=== PATIENT | female | born 1960 | race Two or more races ===

== ENCOUNTER 2022-03-03 08:35 | Outpatient (REF) | payer OTHER, SELFPAY ==
--- NOTE | ~2022-03-03 | MM_ITS ---
EXAMINATION: BONE DENSITOMETRY CLINICAL INDICATION: Menopause. COMPARISON: Baseline BD dated 12/28/2006. TECHNIQUE: Using a Server[employer] DXA System (software version: 13.1) manufactured by [employer], dual-energy x-ray absorptiometry was performed of the lumbar spine and left hip. The images are of good technical quality. Summary results are attached. FINDINGS: AP SPINE L1-L4: Current: BMD 0.834 g/cm2, Z-score -1.8, T-score -2.9, osteoporosis, 7.9% decrease from baseline (<5% change is not significant). Baseline: BMD 0.906 g/cm2. LEFT FEMUR, NECK: Current: BMD 0.667 g/cm2, Z-score -1.5, T-score -2.7, osteoporosis. Baseline: BMD 0.818 g/cm2. LEFT FEMUR, TOTAL: Current: BMD 0.742 g/cm2, Z-score -1.3, T-score -2.1, osteopenia, 11.9% decrease from baseline (<5% change is not significant). Baseline: BMD 0.842 g/cm2. IDENTIFIED RISK FACTORS: Early menopause, glucocorticoids (chronic), history of fracture (adult), hysterectomy, osteoporosis, secondary osteoporosis. HISTORY OF FRACTURE: Knee. MEDICATIONS: Calcium, vitamin D, Prolia. MM/XR DEXA axial skeleton IMPRESSION: 1. DIAGNOSIS: Osteoporosis based on the lowest T-score value of -2.9 in the lumbar spine applying World Health Organization criteria. 2. 10-YEAR FRACTURE RISK PREDICTION, FRAX: According to the guidelines, FRAX calculation should only be performed on patients in the osteopenia bone density category. Therefore, FRAX was not performed on this patient. 3. Treatment Recommendations: NOF guidelines recommend consideration for treatment in postmenopausal women and men age 50 and older presenting with the following: -A hip or vertebral (clinical or morphometric) fracture. -T-score less than or equal to -2.5 at the femoral neck or spine after appropriate evaluation to exclude secondary causes. -Low bone mass at the hip or spine and a 10-year fracture probability by FRAX of greater than or equal to 3% for hip fracture or greater than or equal to 20% for major osteoporotic fracture based on the [place] adapted WHO algorithm. 4. Other Recommendations: All treatment decisions require clinical judgment and consideration of individual patient factors, including patient preferences, comorbidities, previous drug use, risk factors not captured in the FRAX model (e.g. frailty, falls, vitamin D deficiency, increased bone turnover, interval significant decline in bone density) and possible under or overestimation of fracture risk by FRAX. Additional medical evaluation for secondary cause of low bone mineral density may be appropriate. FUTURE SCAN RECOMMENDATION: People with diagnosed cases of osteoporosis or at high risk for fracture should have regular bone mineral density tests. For patients eligible for Medicare, routine testing is allowed once every 2 years. The testing frequency can be increased to one year for patients who have rapidly progressing disease, those who are receiving or discontinuing medical therapy to restore bone mass, or have additional risk factors.
== END 2022-03-03 08:36 | disposition home or self-care (01) ==
LOC: HO.MAMMO 08:35
PROVIDERS: PCP Internal Medicine Geriatric Medicine; Visit Provider Family Medicine
DX: Z13.820 Encounter for screening for osteoporosis (principal); G70.00 Myasthenia gravis without (acute) exacerbation; Z78.0 Asymptomatic menopausal state
CPT/HCPCS: 77080

== ENCOUNTER 2022-11-03 10:50 | Emergency (ER) | payer MEDICAID, SELFPAY ==
[2022-11-03 10:54] VITALS: BP 115/98; PULSE 110; RESP 20; TEMP 37.1; O2SAT 97; BMI 28.9
--- NOTE | 2022-11-03 11:04 | ED_ITS ---
HPI - General Adult General Chief complaint: General Medical Stated complaint: fever body pains weak Time Seen by Provider: 11/03/22 10:59 Source: patient Mode of arrival: ambulatory Limitations: no limitations History of Present Illness HPI narrative: 61-year-old Citizen Of [place]-speaking female with history of recurring UTIs for the last several months presents to the ER for evaluation of not feeling well, bladder pressure, frequent urination, lower back pain and body aches for the last 2 days. She states she has had recurrent urinary tract infections for the last 5 months. She has been on and off antibiotics, most recently was on ciprofloxacin 2 weeks ago for an E coli UTI. She states she had subjective feve r at home yesterday. Has been nauseous intermittently but no vomiting or diarrhea. No abdominal pain aside from suprapubic pain and burning sensation of the bladder. She denies any dysuria or hematuria. No flank pain but she reports pain and soreness across her lower back. She has body aches and headaches as well. MD complaint: UTI symptoms, generalized malaise Onset (ago): day(s) (2) Location: head, back and pelvis Radiation: non-radiation Severity: moderate Quality: aching Pain Consistency: intermittent Relieving factors: medication and rest Exacerbating factors: none Associated symptoms: fever/chills, headaches, malaise, nausea/vomiting and weakness Treatments prior to arrival: none Related Data Previous Rx's Medication Instructions Recorded cefuroxime axetil 250 mg tablet 250 mg PO BID 10 days #20 tabs 11/03/22 Allergies Allergy/AdvReac Type Severity Reaction Status Date / Time penicillin V Allergy Unknown Unknown Verified 11/03/22 10:57 Penicillins [PENICILLINS] Allergy Unknown UNKNOWN - Verified 11/03/22 10:57 RXN CHILD Review of Systems Review of Systems: Yes all other systems are reviewed and are negative PMFSH Social History Social History Advance Directives: No Physical Exam ED Vital Signs: Vital Signs - 24 hr 11/03/22 10:54 11/03/22 13:15 11/03/22 14:16 Temperature 98.8 F 102 F H 100.1 F Pulse Rate 110 H 100 98 Respiratory Rate 20 17 16 Blood Pressure 115/98 H 134/72 107/64 Pulse Oximetry 97 98 97 Oxygen Delivery Method Room Air Room Air Room Air BMI result Body Mass Index 28.9 Appearance: Alert. Oriented X3. No acute distress. nontoxic appearing Head: normocephalic, atraumatic. Eyes: Pupils equal, round and reactive to light. ENT: Pharynx normal. No tonsillar swelling or exudate. Neck: Normal inspection. Neck supple. CVS: Normal heart rate and rhythm. Pulses normal. Respiratory: No respiratory distress. Breath sounds normal. Abdomen: Soft with suprapubic tenderness only, no rebound or guarding. +BS x4 Skin: Skin warm and dry. Normal skin color. Normal skin turgor. No rashes. Extremities: No lower extremity edema. No joint swelling. Neuro/psych: Oriented X 3. No motor deficit. No sensory deficit. CN II-XII intact. Normal speech and cognition. Medications Administered Discontinued Medications Generic Name Dose Route Start Last Admin Trade Name Freq PRN Reason Stop Dose Admin Acetaminophen 975 mg 11/03/22 13:15 11/03/22 13:18 Acetaminophen 325 Mg Tablet PO 11/03/22 13:16 975 mg ONCE ONE Administration Ceftriaxone Sodium 1 gm/ 50 mls @ 100 mls/hr 11/03/22 11:11 11/03/22 11:50 Sodium Chloride IV 11/03/22 11:40 100 mls/hr ONCE ONE Administration Sodium Chloride 1,000 mls @ 999 mls/hr 11/03/22 11:15 11/03/22 11:51 Ns IV 11/03/22 12:15 999 mls/hr .Q1H1M LORE Administration Medical Decision Making Medical Decision Making MDM Narrative: 61-year-old female with history of recurrent UTIs presents to the ER for evaluation of bladder pain and pressure, subjective fevers, body aches, lower back pain and frequent urination for the last 2 days. She rest to the ER with tachycardia, heart rates 110. She developed a fever of 102 well in the ER. Lab work showed leukocytosis of 21.6k, lactic acid was normal. No other evidence of organ dysfunction. Patient's last urine culture was reviewed, she was growing E coli that was resistant to Bactrim, it was sensitive to cephalosporins. She was given her 1st dose of IV Rocephin here. At this point patient appears well, she would like to be discharged home. She is not vomiting. Her fevers improved. She is not altered. She can be discharged with 10 days of oral antibiotics. staffing manager was used to discuss her diagnosis, treatment plan as well as strict return precautions. Comfortable discharge home with p.o. antibiotics, close outpatient follow-up and low threshold for return if clinically worsening at home Differential Diagnosis Differential Diagnoses: The differential diagnosis associated with the presenta tion includes Recurrent UTI, UTI with resistant organism, pyelonephritis, sepsis, severe sepsis, COVID, flu Admission/Observation Consideration of admission/observation: Escalation of care including admission/observation considered patient meeting sepsis criteria with leukocytosis and tachycardia however she is nontoxic appearing, tolerating p.o., fevers improved with medications. Patient like to be discharged. She was given 1st dose of IV antibiotics while in the emergency department and can safely be discharged home with oral Ceftin for 10 days. She was given strict return precautions. Lab Data MDM Lab Attestation statement: I reviewed the patient's lab results. leukocytosis, normal renal function, normal lactic acid 11/03/22 11:32 11/03/22 11:32 Labs: Lab Results 11/03/22 11/03/22 11/03/22 Range/Units 11:31 11:32 11:32 WBC 21.6 H (4.8-10.8) X10*3/uL RBC 5.55 H (4.20-5.50) X10*6/uL Hgb 14.3 (12.0-16.0) g/dl Hct 44.0 (37.0-47.0) % MCV 79.3 L (80.0-98.0) fL MCH 25.8 L (27.0-33.0) pg MCHC 32.5 (31.0-35.0) g/dl RDW 14.9 (11.0-16.0) % Plt Count 302 (160-400) X10*3/uL MPV 10.3 (9.4-12.3) fL Immature Gran % (Auto) 0.6 H (0.0-0.4) % Neut % (Auto) 78.5 H (45-73) % Lymph % (Auto) 12.0 L (20-40) % [place] % (Auto) 8.4 (2-11) % Eos % (Auto) 0.0 (0-4) % Baso % (Auto) 0.5 (0-2) % Lymph # (Auto) 2.6 (1.2-4.9) X10*3/uL [place] # (Auto) 1.8 H (0.1-1.2) X10*3/uL Eos # (Auto) 0.0 (0.0-0.4) X10*3/uL Baso # (Auto) 0.1 (0.0-0.2) X10*3/uL Abs Immat Gran (auto) 0.14 H (0.00-0.03) X10*3/uL Absolute Neuts (auto) 17.0 H (2.0-8.3) x10*3/uL Absolute Nucleated RBC 0.000 (0.0-0.012) X10*3/uL Nucleated RBC % (auto) 0.0 (0.0-0.2) /100WBC Smear Tech's Comments VERIFIED Sodium 139 (135-145) mmol/L Potassium 3.4 (3.3-5.1) mmol/L Chloride 96 (96-108) mmol/L Carbon Dioxide 33 H (22-29) mmol/L Anion Gap 13 (12-20) BUN 18 H (9-16) mg/dL Creatinine 0.81 (0.5-1.4) mg/dL Estim Creat Clear Calc 67.6 Estimated GFR > 60 Random Glucose 98 (60-115) mg/dL Lactic Acid 1.8 (0.5-2.0) mmol/L Calcium 10.2 (8.4-10.2) mg/dL Magnesium 2.0 (1.6-2.6) mg/dL Total Bilirubin 1.3 H (0.0-1.0) mg/dL Direct Bilirubin 0.3 (0.0-0.5) mg/dL AST 37 H (5-31) U/L ALT 20 (0-31) U/L Alkaline Phosphatase 102 (39-117) U/L Total Protein 8.0 (6.5-8.0) g/dL Albumin 4.1 (3.5-5.0) g/dL Urine Color Urine Appearance Urine pH (5.0-9.0) Ur Specific [place] (1.005-1.025) Urine Protein (Neg-Trace) mg/dL Urine Glucose (UA) (Negative) mg/dL Urine Ketones (Negative) mg/dL Urine Blood (Negative) Urine Nitrite (Negative) Ur Leukocyte Esterase (Negative) Urine RBC (0-2) /HPF Urine WBC (0-5) /HPF Ur Squamous Epith Cells (0-2) /HPF Urine Bacteria (None Seen) Hyaline Casts (0-2) /LPF 11/03/22 Range/Units 11:39 WBC (4.8-10.8) X10*3/uL RBC (4.20-5.50) X10*6/uL Hgb (12.0-16.0) g/dl Hct (37.0-47.0) % MCV (80.0-98.0) fL MCH (27.0-33.0) pg MCHC (31.0-35.0) g/dl RDW (11.0-16.0) % Plt Count (160-400) X10*3/uL MPV (9.4-12.3) fL Immature Gran % (Auto) (0.0-0.4) % Neut % (Auto) (45-73) % Lymph % (Auto) (20-40) % [place] % (Auto) (2-11) % Eos % (Auto) (0-4) % Baso % (Auto) (0-2) % Lymph # (Auto) (1.2-4.9) X10*3/uL [place] # (Auto) (0.1-1.2) X10*3/uL Eos # (Auto) (0.0-0.4) X10*3/uL Baso # (Auto) (0.0-0.2) X10*3/uL Abs Immat Gran (auto) (0.00-0.03) X10*3/uL Absolute Neuts (auto) (2.0-8.3) x10*3/uL Absolute Nucleated RBC (0.0-0.012) X10*3/uL Nucleated RBC % (auto) (0.0-0.2) /100WBC Smear Tech's Comments Sodium (135-145) mmol/L Potassium (3.3-5.1) mmol/L Chloride (96-108) mmol/L Carbon Dioxide (22-29) mmol/L Anion Gap (12-20) BUN (9-16) mg/dL Creatinine (0.5-1.4) mg/dL Estim Creat Clear Calc Estimated GFR Random Glucose (60-115) mg/dL Lactic Acid (0.5-2.0) mmol/L Calcium (8.4-10.2) mg/dL Magnesium (1.6-2.6) mg/dL Total Bilirubin (0.0-1.0) mg/dL Direct Bilirubin (0.0-0.5) mg/dL AST (5-31) U/L ALT (0-31) U/L Alkaline Phosphatase (39-117) U/L Total Protein (6.5-8.0) g/dL Albumin (3.5-5.0) g/dL Urine Color Yellow Urine Appearance Cloudy Urine pH 8.0 (5.0-9.0) Ur Specific [place] 1.020 (1.005-1.025) Urine Protein 30 (1+) H (Neg-Trace) mg/dL Urine Glucose (UA) Negative (Negative) mg/dL Urine Ketones Negative (Negative) mg/dL Urine Blood Small (1+) H (Negative) Urine Nitrite Positive H (Negative) Ur Leukocyte Esterase Trace H (Negative) Urine RBC 11-20 H (0-2) /HPF Urine WBC 0-5 (0-5) /HPF Ur Squamous Epith Cells 0-2 (0-2) /HPF Urine Bacteria 4+ (None Seen) Hyaline Casts 0-2 (0-2) /LPF Independent Historian Clinical information obtained from an independent historian. History obtained from or confirmed by: Spouse External Record Review External record reviewed: Office record, Outpatient record, Prior outpatient labs, Prior outpatient radiology and Primary care record Tests considered The following testing was considered but not selected: CT scan of the abdomen was considered however she had no CVA tenderness on exam, doubt pyelonephritis Or obstructive uropathy Prescription Management I considered prescription management with: Pain Medication and Antibiotic Chronic Conditions Patient?s care impacted by: Other ( recurring UTIs) Critical Care Time Critical Care Time Critical Care Time: Yes Total Critical Care Time: 35 Attestation: I have personally provided critical care time exclusive of time spent on separately billable procedures. Time includes review of lab data, outpatient records, frequent bedside re-evaluation, and monitoring for potential decompensation. Intervention performed as documented. Discharge Plan Discharge Clinical Impression: Acute UTI Patient Disposition: Home, Self-Care Instructions: Urinary Tract Infection in Women (DC) Additional Instructions: Your given 1st dose of IV antibiotics for UTI today. Take the prescribed antibiotics as directed, start them 1st thing tomorrow morning. Do not miss any doses and complete the entire course. Make sure staying hydrated, drinking plenty of fluids. Take Motrin and Tylenol as needed for fevers and body aches. If you develop new or worsening symptoms call 911 or come back to the ER for further evaluation. Le dieron la primera dosis de antibi?ticos intravenosos para UTI hoy. [place] los antibi?ticos recetados seg?n las indicaciones, comience a tomarlos ma?naina por la ma?naina. No te pierdas ninguna dosis y completa todo el curso. Aseg?rese de mantenerse hidratado, bebiendo muchos l?quidos. [place] Motrin y Tylenol seg?n sea necesario para la fiebre y los raoul corpo rales. Si desarrolla s?ntomas nuevos o que empeoran, llame al 911 o regrese a la william de emergencias para link evaluaci?n adicional. Prescriptions: New cefuroxime axetil 250 mg tablet 250 mg PO BID 10 Days Qty: 20 0RF Referrals: Kevin Scanlon MD [Primary Care Provider] - Interventions: ED Discharge Assessment Last Done: 11/03/22 14:48 Discharge Date/Time: 11/03/22 14:51 Print Language: Citizen Of [place]
[2022-11-03 11:41] LABS: Basophils Absolute Auto 0.1 X10*3/uL (0.0-0.2); Basophils Percent Auto 0.5 % (0-2); Hemoglobin 14.3 g/dl (12.0-16.0); Imm Gran Abs Auto 0.14 X10*3/uL (0.00-0.03); Imm Gran Pct Auto 0.6 % (0.0-0.4); Lymphocytes Absolute Auto 2.6 X10*3/uL (1.2-4.9); MANUAL DIFF FLAG SCAN; Mean Corpuscular HGB Conc 32.5 g/dl (31.0-35.0); Mean Corpuscular Hemoglobin 25.8 pg (27.0-33.0); Mean Corpuscular Volume 79.3 fL (80.0-98.0); Mean Platelet Volume 10.3 fL (9.4-12.3); Monocytes Absolute Auto 1.8 X10*3/uL (0.1-1.2); Monocytes Percent Auto 8.4 % (2-11); Neutrophils Percent Auto 78.5 % (45-73); Platelet Count 302 X10*3/uL (160-400); Red Blood Count 5.55 X10*6/uL (4.20-5.50); Red Cell Distribution Width 14.9 % (11.0-16.0); SCAN SMEAR FLAG 1; White Blood Count 21.6 X10*3/uL (4.8-10.8)
[2022-11-03] MEDS: cefTRIAXone sodium 1 GM in 0.9 % Sodium Chloride 50 ML IV (11:50)
[2022-11-03 11:51] LABS: Lactic Acid 1.8 mmol/L (0.5-2.0)
[2022-11-03] MEDS: 0.9 % Sodium Chloride 1,000 ML 999 ML IV (11:51)
[2022-11-03 11:58] LABS: Appearance Urine Cloudy; Color Urine Yellow; Glucose Urine UA Negative (Negative); Leukocyte Esterase Urine Trace (Negative); Nitrite Urine Positive (Negative); UMIC TRIGGER UACC YES; Urine Blood Small (1+) (Negative); Urine Ketones Negative (Negative); Urine Protein 30 (1+) mg/dL (Neg-Trace)
[2022-11-03 12:00] LABS: Bacteria Urine 4+ (None Seen); Hyaline Casts Urine 0-2 /LPF (0-2); Squamous Epithelial Cell Urine 0-2 /HPF (0-2); UACC Culture Trigger YES; WBC Urine 0-5 /HPF (0-5)
[2022-11-03 12:05] LABS: Alanine Aminotransferase 20 U/L (0-31); Albumin Level 4.1 g/dL (3.5-5.0); Alkaline Phosphatase 102 U/L (39-117); Anion Gap 13 (12-20); Aspartate Amino Transferase 37 U/L (5-31); Bilirubin Direct 0.3 mg/dL (0.0-0.5); Bilirubin Total 1.3 mg/dL (0.0-1.0); Blood Urea Nitrogen 18 mg/dL (9-16); Calcium 10.2 mg/dL (8.4-10.2); Carbon Dioxide 33 mmol/L (22-29); Chloride 96 mmol/L (96-108); Creatinine Clr Calc Pharmacy 67.6; Estimated Glomerular Filt Rate > 60; Glucose Random 98 mg/dL (60-115); Potassium 3.4 mmol/L (3.3-5.1); Sodium 139 mmol/L (135-145)
[2022-11-03 12:06] LABS: SLIDE REVIEW VERIFIED
[2022-11-03 13:15] VITALS: BP 134/72; PULSE 100; RESP 17; TEMP 38.8; O2SAT 98
[2022-11-03] MEDS: Acetaminophen 325 MG TABLET 975 MG PO (13:18)
[2022-11-03 14:16] VITALS: BP 107/64; PULSE 98; RESP 16; TEMP 37.8; O2SAT 97
== END 2022-11-03 14:51 | disposition home or self-care (01) ==
PROVIDERS: Physician Assistant; Emergency Provider Emergency Medicine; PCP Internal Medicine Geriatric Medicine
DX: N39.0 Urinary tract infection, site not specified (principal); B96.20 Unspecified Escherichia coli [E. coli] as the cause of diseases classified elsewhere; R50.9 Fever, unspecified; R00.0 Tachycardia, unspecified; Z87.440 Personal history of urinary (tract) infections
CPT/HCPCS: 36415; 80048; 80076; 81001; 83605; 83735; 85025; 87040; 87086; 87088; 87186; 96374; 99284; J0696

== ENCOUNTER 2023-09-27 14:42 | Outpatient (REF) | payer MEDICAID, SELFPAY ==
[2023-09-27 16:07] LABS: Appearance Urine Clear; Color Urine Yellow; Glucose Urine UA Negative (Negative); Leukocyte Esterase Urine Trace (Negative); Nitrite Urine Positive (Negative); Specific Gravity - Urine 1.025 (1.005-1.025); UMIC TRIGGER UACC YES; Urine Blood Negative (Negative); Urine Ketones Negative (Negative); Urine Protein Negative (Neg-Trace)
[2023-09-27 16:10] LABS: Bacteria Urine 4+ (None Seen); Hyaline Casts Urine 0-2 /LPF (0-2); RBC Urine 0-2 /HPF (0-2); UACC Culture Trigger YES
== END 2023-09-27 14:43 | disposition home or self-care (01) ==
LOC: HO.HHCL 14:42
PROVIDERS: Visit Provider Internal Medicine
DX: R39.9 Unspecified symptoms and signs involving the genitourinary system (principal)
CPT/HCPCS: 81001; 87086; 87088; 87186

== ENCOUNTER 2023-10-15 08:30 | Emergency (ER) | payer MEDICAID, SELFPAY ==
[2023-10-15 08:45] VITALS: BP 125/69; PULSE 76; RESP 16; TEMP 36.9; O2SAT 98; BMI 27.5
[2023-10-15 10:09] LABS: MANUAL DIFF FLAG NO
[2023-10-15 10:10] LABS: Basophils Absolute Auto 0.1 X10*3/uL (0.0-0.2); Basophils Percent Auto 0.8 % (0-2); Eosinophils Absolute Auto 0.2 X10*3/uL (0.0-0.4); Eosinophils Percent Auto 2.2 % (0-4); Hematocrit 42.6 % (37.0-47.0); Hemoglobin 13.8 g/dl (12.0-16.0); Imm Gran Abs Auto 0.05 X10*3/uL (0.00-0.03); Imm Gran Pct Auto 0.4 % (0.0-0.4); Lymphocytes Absolute Auto 2.7 X10*3/uL (1.2-4.9); Lymphocytes Percent Auto 24.4 % (20-40); Mean Corpuscular HGB Conc 32.4 g/dl (31.0-35.0); Mean Corpuscular Hemoglobin 26.1 pg (27.0-33.0); Mean Corpuscular Volume 80.7 fL (80.0-98.0); Mean Platelet Volume 10.2 fL (9.4-12.3); Monocytes Absolute Auto 0.6 X10*3/uL (0.1-1.2); Monocytes Percent Auto 5.7 % (2-11); Neutrophils Absolute Auto 7.4 x10*3/uL (2.0-8.3); Neutrophils Percent Auto 66.5 % (45-73); Platelet Count 300 X10*3/uL (160-400); Red Blood Count 5.28 X10*6/uL (4.20-5.50); White Blood Count 11.1 X10*3/uL (4.8-10.8)
[2023-10-15 10:17] LABS: Appearance Urine Clear; Color Urine Yellow; Glucose Urine UA Negative (Negative); Leukocyte Esterase Urine Trace (Negative); Nitrite Urine Negative (Negative); PH 6.5 (5.0-9.0); Specific Gravity - Urine 1.025 (1.005-1.025); UMIC TRIGGER UACC YES; Urine Blood Negative (Negative); Urine Ketones Trace mg/dL (Negative); Urine Protein Negative (Neg-Trace)
[2023-10-15 10:32] LABS: Alanine Aminotransferase 19 U/L (0-31); Alkaline Phosphatase 100 U/L (39-117); Anion Gap 14 (12-20); Aspartate Amino Transferase 27 U/L (5-31); Bilirubin Total 0.3 mg/dL (0.0-1.0); Blood Urea Nitrogen 18 mg/dL (9-16); Calcium 10.7 mg/dL (8.4-10.2); Carbon Dioxide 29 mmol/L (22-29); Chloride 105 mmol/L (96-108); Creatinine Clr Calc Pharmacy 67.7; Estimated Glomerular Filt Rate > 60; Glucose Random 117 mg/dL (60-115); Sodium 144 mmol/L (135-145); Total Protein 7.9 g/dL (6.5-8.0)
[2023-10-15 10:41] LABS: Bacteria Urine None Seen (None Seen); Hyaline Casts Urine 0-2 /LPF (0-2); RBC Urine 0-2 /HPF (0-2); WBC Urine 0-5 /HPF (0-5)
--- NOTE | 2023-10-15 17:10 | ED_ITS ---
HPI - General Adult General Chief complaint: Abdominal Pain Stated complaint: bladder and kidney pain Source: patient and patient admitting representative (all interactions with this patient were facilitated by an [facility] tile applicator) Mode of arrival: ambulatory Limitations: language barrier (all interactions with this patient were facilitated by an [facility] tile applicator) History of Present Illness HPI narrative: Patient is a 62 year old assigned female at with a history of recurrent UTIs presenting to the emergency department today with concern of another UTI. Patient states that her low back and bladder are having pain again and she is concerned that she has another UTI. Patient states that she recently finished antibiotics for a UTI but the symptoms persist. Patient states that her bowels have been normal, not watery. Patient denies any dizziness, lightheadedness, nausea, vomiting, fever, chills, blurry vision, double vision, loss of vision, chest pain, difficulty breathing, shortness of breath, night sweats, blood in her urine or stool, syncope or a near syncopal episode, recent trauma or falls, bowel incontinence, bladder incontinence, bowel retention, bladder retention, or any other complaints at this time. Onset (ago): day(s) Severity: mild Severity scale (1-10): 3 Relieving factors: none Exacerbating factors: none Associated symptoms: denies other symptoms Treatments prior to arrival: none Related Data Previous Rx's ?Medication ?Instructions ?Recorded cefuroxime axetil 250 mg tablet 250 mg PO BID 10 days #20 tabs 11/03/22 Allergies Allergy/AdvReac Type Severity Reaction Status Date / Time penicillin V Allergy Unknown Unknown Verified 10/16/23 07:40 Penicillins [PENICILLINS] Allergy Unknown UNKNOWN - Verified 10/16/23 07:40 RXN CHILD Review of Systems 2 Constitutional: Constitutional: Reports no additional constitutional complaints, Denies chills, Denies fever(s) and Denies night sweats Eyes: Eyes: Reports no additional eye complaints, Denies blurry vision, Denies change in vision, Denies diplopia, Denies eye discharge, Denies loss of vision and Denies eye pain ENT: Denies dizziness Cardiovascular: Cardiovascular: Reports no additional cardiovascular complaints, Denies chest pain, Denies lightheadedness, Denies Loss of Consciousness and Denies dyspnea Respiratory: Respiratory: Reports no additional respiratory complaints and Denies dyspnea Gastrointestinal: Gastrointestinal: Reports no additional gastrointestinal complaints, Reports abdominal pain, Denies melena, Denies hematochezia, Denies change in bowel habits and Denies change in stool character Genitourinary: Genitourinary: Denies hematuria, Denies urinary frequency, Reports dysuria, Denies urinary incontinence, Denies urinary hesitancy and Denies urinary urgency Musculoskeletal: Musculoskeletal: Reports no additional musculoskeletal complaints, Reports back pain, Denies numbness and Denies tingling Neurologic: Denies dizziness, Denies loss of vision, Denies numbness and Denies tingling Psychiatric: Psychiatric: Reports no additional psychiatric complaints Endocrine: Endocrine: Reports no additional endocrine complaints Hematologic/Lymphatic: Hematologic/Lymphatic: Reports no additional hematologic/lymphatic complaints Allergic/Immunologic: Allergic/Immunologic: Reports no additional allergic/immunologic complaints PMFSH Past Medical History Attestation statement: The following information was validated with the patient. Source: old records reviewed and nursing notes reviewed Social History Social History Smoked in Last 30 Days: No Use of substances other than those prescribed or required for medical reasons: No Advance Directives: No Advance Directives Information Provided: Yes Do you have a plan to hurt others: No Plan Physical Exam ED Vital Signs: Vital Signs - 24 hr 10/15/23 17:12 Temperature 97.4 F Pulse Rate 72 Respiratory Rate 16 Blood Pressure 136/74 Pulse Oximetry 99 Oxygen Delivery Method Room Air BMI result Body Mass Index 27.5 Const General: cooperative, no acute distress, alert and awake Nutritional Appearance: well nourished Orientation/consciousness: patient oriented x3 Limitations: no limitations [facility] Head: Yes normal to inspection and Yes atraumatic Ears: hearing grossly normal bilaterally and external ears normal General nose exam: Normal external nose present, no nasal discharge noted and no epistaxis Face and sinus: Yes normal facial exam, No abrasion and No laceration Mouth: Normal oral and palatal mucosa present, no drooling and no muffled voice Eyes General: appearance normal, both eyes and all related structures Periorbital: periorbital findings normal Eyelids: Yes eyelids normal Conjunctivae: conjunctivae normal Pupils: Equal, round and reactive pupils present EOM: EOMs intact bilaterally Neck Neck: Yes normal visual inspection, Yes full ROM and Yes no lymphadenopathy Chest Chest palpation & inspection: normal inspection of the chest Resp Effort & Inspection: normal respiratory effort and able to speak in complete sentences Neuro General: patient oriented x3 and moves all extremities Cranial nerves: Yes Equal, round and reactive pupils present Cognition (Neuro): normal cognition Motor exam (neuro): 5/5 motor strength present throughout Sensory Exam: Normal double simultaneous stimulation for sensation Coordination: [id number] test normal Extrem General: Yes normal to inspection, Yes full ROM and Yes capillary refill normal Psych Appearance: grossly normal Mental Status: mental status grossly normal Affect: normal affect Attitude: cooperative Thought process: Normal thought process present Thought content: Normal thought content present Insight: Good insight present (Psych) Course Course Course Narrative: RME performed by Dorcas Nino PA-C. Patient is a 62 year old assigned female at presenting to the emergency department with abdominal pain. Patient states that she has a history of recurrent UTIs, recently completed antibiotic for it, however, she continues to have pain. Patient states that she is having watery diarrhea. Detailed physical exam and review of systems are deferred to the corporate executive. Labs and imaging ordered. Patient placed back in the waiting room pending room availability and results. Medical Decision Making Medical Decision Making [facility] Narrative: Patient is a 62 year old assigned female at with a history of recurrent UTIs presenting to the emergency department today with bladder pain, back pain, and concern for another UTI. Patient's limited physical exam performed in triage was unremarkable. Patient's blood work was unremarkable. Patient's urine showed no evidence of acute infection. Patient left the department without completing treatment. Patient left the department before myself or any of the other emergency department clinicians could explain to or review with the patient; physical exam findings, test results, need or lack there of for additional testing, need or lack there of to perform a procedure, need or lack there of for hospital admission or transfer, need or lack there of for prescription medication, treatment options, or a treatment plan. Differential Diagnosis Differential Diagnoses: The differential diagnosis associated with the presentation includes UTI Bladder spasm Abdominal pain Back pain Admission/Observation Consideration of admission/observation: Escalation of care including admission/observation considered Patient would have been admitted to the hospital had she completed her work up and it had any findings where hospital admission was appropriate, her clinical presentation warranted hospital admission, had myself or any other emergency emergency department physician had the ability to discuss need or lack there of for hospital admission, and the patient hadn't left the department without completing treatment. Lab Data [facility] Lab Attestation statement: I reviewed the patient's lab results. My interpretation of these results are in the [facility] Rationale portion of this note. 10/15/23 09:54 10/15/23 09:54 Labs: Lab Results 10/15/23 Range/Units 09:54 WBC 11.1 H (4.8-10.8) X10*3/uL RBC 5.28 (4.20-5.50) X10*6/uL Hgb 13.8 (12.0-16.0) g/dl Hct 42.6 (37.0-47.0) % MCV 80.7 (80.0-98.0) fL MCH 26.1 L (27.0-33.0) pg MCHC 32.4 (31.0-35.0) g/dl RDW 14.0 (11.0-16.0) % Plt Count 300 (160-400) X10*3/uL MPV 10.2 (9.4-12.3) fL Immature Gran % (Auto) 0.4 (0.0-0.4) % Neut % (Auto) 66.5 (45-73) % Lymph % (Auto) 24.4 (20-40) % [place] % (Auto) 5.7 (2-11) % Eos % (Auto) 2.2 (0-4) % Baso % (Auto) 0.8 (0-2) % Lymph # (Auto) 2.7 (1.2-4.9) X10*3/uL [place] # (Auto) 0.6 (0.1-1.2) X10*3/uL Eos # (Auto) 0.2 (0.0-0.4) X10*3/uL Baso # (Auto) 0.1 (0.0-0.2) X10*3/uL Abs Immat Gran (auto) 0.05 H (0.00-0.03) X10*3/uL Absolute Neuts (auto) 7.4 (2.0-8.3) x10*3/uL Absolute Nucleated RBC 0.000 (0.0-0.012) X10*3/uL Nucleated RBC % (auto) 0.0 (0.0-0.2) /100WBC Sodium 144 (135-145) mmol/L Potassium 4.0 (3.3-5.1) mmol/L Chloride 105 (96-108) mmol/L Carbon Dioxide 29 (22-29) mmol/L Anion Gap 14 (12-20) BUN 18 H (9-16) mg/dL Creatinine 0.81 (0.5-1.4) mg/dL Estim Creat Clear Calc 67.7 Estimated GFR > 60 Random Glucose 117 H (60-115) mg/dL Calcium 10.7 H (8.4-10.2) mg/dL Total Bilirubin 0.3 (0.0-1.0) mg/dL AST 27 (5-31) U/L ALT 19 (0-31) U/L Alkaline Phosphatase 100 (39-117) U/L Total Protein 7.9 (6.5-8.0) g/dL Albumin 4.0 (3.5-5.0) g/dL Urine Color Yellow Urine Appearance Clear Urine pH 6.5 (5.0-9.0) Ur Specific [place] 1.025 (1.005-1.025) Urine Protein Negative (Neg-Trace) mg/dL Urine Glucose (UA) Negative (Negative) mg/dL Urine Ketones Trace (Negative) mg/dL Urine Blood Negative (Negative) Urine Nitrite Negative (Negative) Ur Leukocyte Esterase Trace H (Negative) Urine RBC 0-2 (0-2) /HPF Urine WBC 0-5 (0-5) /HPF Ur Squamous Epith Cells 3-5 (0-2) /HPF Urine Bacteria None Seen (None Seen) Hyaline Casts 0-2 (0-2) /LPF Discharge Plan Discharge Clinical Impression: Abdominal pain Patient Disposition: Left W/O Completing Treatment Prescriptions: No Action cefuroxime axetil 250 mg tablet 250 mg PO BID 10 Days Qty: 20 0RF Discharge Date/Time: 10/15/23 20:49
[2023-10-15 17:12] VITALS: BP 136/74; PULSE 72; RESP 16; TEMP 36.3; O2SAT 99
== END 2023-10-15 20:49 | disposition left against medical advice (07) ==
PROVIDERS: Emergency Provider Emergency Medicine; PCP Internal Medicine Geriatric Medicine
DX: R10.9 Unspecified abdominal pain (principal); M54.50 Low back pain, unspecified; Z87.440 Personal history of urinary (tract) infections
CPT/HCPCS: 36415; 80053; 81001; 85025; 99282; 99283

== ENCOUNTER 2023-10-16 07:22 | Emergency (ER) | payer MEDICAID, SELFPAY ==
--- NOTE | ~2023-10-16 | CT_ITS ---
EXAMINATION: CT ABDOMEN AND PELVIS WITHOUT CONTRAST CLINICAL INFORMATION: lower abd pain, flank L flank pain COMPARISON: CT abdomen pelvis 09/14/2019 TECHNIQUE: Multidetector volumetric imaging was performed from the superior aspect of the liver through the pubic symphysis. Sagittal and coronal reformatted images were obtained on the technologist's workstation. This CT examination was performed using dose optimization techniques as appropriate, variously including the following: *Automated exposure control *Adjustment of mA and/or kV according to patient size (this includes techniques or standardized protocols for targeted exams where dose is matched to indication/reason for exam; i.e. extremities or head) *Use of iterative reconstruction technique DLP: 460 mGy-cm FINDINGS: LUNG BASES: The visualized lung bases are unremarkable. LIVER, GALLBLADDER, AND BILIARY TREE: The liver is enlarged at 17.8 cm with decreased attenuation consistent with hepatic steatosis. Focal areas of sparing are present around the filemon hepatis and gallbladder. No focal hepatic lesion or biliary ductal dilatation is present. The gallbladder is unremarkable with no evidence of radiopaque gallstones, gallbladder wall thickening, or obvious pericholecystic inflammatory changes. PANCREAS: Unremarkable. SPLEEN: Unremarkable. ADRENAL GLANDS: Unremarkable. KIDNEYS AND URETERS: The kidneys are normal in size, shape, and attenuation with the exception of a cortical scar at the upper pole of the left kidney unchanged from prior. No hydronephrosis, hydroureter, or calculi seen. No perinephric stranding. BLADDER: Unremarkable. Small amount of intramural fat is present. GASTROINTESTINAL TRACT: The small and large bowel are unremarkable. The appendix is unremarkable. ABDOMINAL WALL: No significant hernia is appreciated. LYMPH NODES: Normal. VASCULAR: Unremarkable. PELVIC VISCERA: The uterus and adnexa are unremarkable. OSSEOUS STRUCTURES: Unremarkable. CT/CT abdomen pelvis wo IV con IMPRESSION: 1. A cause for the patient's lower abdominal pain and left flank pain has not been found. 2. Incidental note made of an enlarged fatty liver and adrenal cortical scar upper pole left kidney. Fleischner guidelines were followed.
[2023-10-16 07:35] VITALS: BP 130/59; PULSE 84; RESP 18; TEMP 36.1; O2SAT 98; BMI 28.7
[2023-10-16 07:52] LABS: MANUAL DIFF FLAG NO
[2023-10-16 07:54] LABS: Basophils Absolute Auto 0.1 X10*3/uL (0.0-0.2); Basophils Percent Auto 0.6 % (0-2); Eosinophils Absolute Auto 0.2 X10*3/uL (0.0-0.4); Eosinophils Percent Auto 2.2 % (0-4); Hematocrit 42.1 % (37.0-47.0); Hemoglobin 13.3 g/dl (12.0-16.0); Imm Gran Abs Auto 0.04 X10*3/uL (0.00-0.03); Imm Gran Pct Auto 0.4 % (0.0-0.4); Lymphocytes Absolute Auto 2.9 X10*3/uL (1.2-4.9); Mean Corpuscular HGB Conc 31.6 g/dl (31.0-35.0); Mean Corpuscular Hemoglobin 25.9 pg (27.0-33.0); Mean Corpuscular Volume 81.9 fL (80.0-98.0); Mean Platelet Volume 10.1 fL (9.4-12.3); Monocytes Absolute Auto 0.5 X10*3/uL (0.1-1.2); Monocytes Percent Auto 4.9 % (2-11); Neutrophils Percent Auto 64.9 % (45-73); Platelet Count 324 X10*3/uL (160-400); Red Blood Count 5.14 X10*6/uL (4.20-5.50); Red Cell Distribution Width 14.1 % (11.0-16.0); White Blood Count 10.8 X10*3/uL (4.8-10.8)
[2023-10-16 08:09] LABS: Alanine Aminotransferase 17 U/L (0-31); Albumin Level 3.8 g/dL (3.5-5.0); Alkaline Phosphatase 94 U/L (39-117); Anion Gap 13 (12-20); Aspartate Amino Transferase 18 U/L (5-31); Bilirubin Total 0.4 mg/dL (0.0-1.0); Blood Urea Nitrogen 19 mg/dL (9-16); Calcium 10.2 mg/dL (8.4-10.2); Carbon Dioxide 29 mmol/L (22-29); Chloride 104 mmol/L (96-108); Creatinine Clr Calc Pharmacy 70.9; Estimated Glomerular Filt Rate > 60; Glucose Random 158 mg/dL (60-115); Sodium 143 mmol/L (135-145); Total Protein 7.1 g/dL (6.5-8.0)
[2023-10-16 09:59] LABS: Adenovirus F 40/41 Not Detected (Not Detect.); Astrovirus Not Detected (Not Detect.); Campylobacter Not Detected (Not Detect.); Cryptosporidium Not Detected (Not Detect.); Cyclospora cayetanensis Not Detected (Not Detect.); E. coli EAEC Not Detected (Not Detect.); E. coli EPEC Not Detected (Not Detect.); E. coli ETEC Not Detected (Not Detect.); E. coli STEC Not Detected (Not Detect.); Entamoeba histolytica Not Detected (Not Detect.); Giardia lamblia Not Detected (Not Detect.); Norovirus GI/GII Not Detected (Not Detect.); Plesiomonas shigelloides Not Detected (Not Detect.); Rotavirus A Not Detected (Not Detect.); Salmonella Not Detected (Not Detect.); Sapovirus Not Detected (Not Detect.); Shigella sp./EIEC Not Detected (Not Detect.); Vibrio Not Detected (Not Detect.); Vibrio Cholerae Not Detected (Not Detect.); Yersinia enterocolitica Not Detected (Not Detect.)
--- NOTE | 2023-10-16 10:04 | ED_ITS ---
HPI - General Adult General Chief complaint: Back Pain/Injury Stated complaint: Abd pain/back pain Time Seen by Provider: 10/16/23 09:08 Source: patient, RN notes reviewed, old records reviewed and [employer] dean (hebrew) Mode of arrival: ambulatory Limitations: no limitations History of Present Illness HPI narrative: 62 year old Haitian speaking female with pmhx significant for recurrent UTIs presents to the ED today for evaluation of lower abdominal pain, left flank pain, and soft stools x1 week. Last BM yesterday. Admits to history of recurrent UTI's while in [place] for which she has completed multiple antibiotics over the last 2 years for. She recently completed a course of Bactrim along with pyridium without relief of pain. Admits to moving here from [place] 1 mo ago and has been unable to get a primary care doctor. Denies fevers, chills, sore throat, N/V, chest pain, sob, dysuria, increased frequency, urgency, hematuria, melena, hematochezia. No known sick contacts. Related Data Previous Rx's ?Medication ?Instructions ?Recorded cefuroxime axetil 250 mg tablet 250 mg PO BID 10 days #20 tabs 11/03/22 cefuroxime axetil 250 mg tablet 250 mg PO BID 7 days #14 tabs 10/16/23 Allergies Allergy/AdvReac Type Severity Reaction Status Date / Time penicillin V Allergy Unknown Unknown Verified 10/16/23 07:40 Penicillins [PENICILLINS] Allergy Unknown UNKNOWN - Verified 10/16/23 07:40 RXN CHILD Review of Systems 2 Review of Systems: Constitutional: No fever, chills, fatigue, night sweats, weight changes ENT/Mouth: No ear pain, hearing loss, nasal congestion, sinus pain, rhinorrhea, sore throat Eyes: No eye pain, swelling, redness, vision changes, discharge Cardio: No chest pain, palpitations, SCHAFFER, orthopnea, peripheral edema Pulm: No SOB, cough, sputum, wheezing, dyspnea, hemoptysis GI: No nausea, vomiting, hematemesis, constipation, hematochezia, melena, +abdominal pain, +diarrhea : No irregular bleeding, dysuria, frequency, urgency, hesitancy, hematuria, urinary flow changes, urinary incontinence or retention, +flank pain MSK: No back pain, neck pain, joint pain, myalgias Skin: No lesions, rashes Neuro: No weakness, numbness, paresthesias, LOC, dizziness, headache Psych: No anxiety/panic, depression, SI/HI, AH/VH All other systems reviewed and are negative. [facility] [place] Past Medical History Attestation statement: The following information was validated with the patient. Source: old records reviewed and nursing notes reviewed Physical Exam ED Vital Signs: Vital Signs - 24 hr 10/16/23 07:35 10/16/23 10:15 Temperature 97 F Pulse Rate 84 Respiratory Rate 18 22 H Blood Pressure 130/59 L Pulse Oximetry 98 Oxygen Delivery Method Room Air BMI result Body Mass Index 28.7 Vital signs stable, afebrile Const General: cooperative, healthy appearing, comfortable and no acute distress Orientation/consciousness: patient oriented x3 Limitations: no limitations HENMT Head: Yes normal to inspection, Yes No palpable skull fracture present, Yes normocephalic and Yes atraumatic Eyes General: appearance normal, both eyes and all related structures Neck Neck: Yes normal visual inspection, Yes full ROM, Yes no lymphadenopathy, Yes no meningeal signs and Yes no JVD Resp Effort & Inspection: normal respiratory effort and able to speak in complete sentences Auscultation: clear to auscultation bilaterally Cardio Rate: regular rate Rhythm: regular rhythm GI Other: + Abdomen soft, nondistended, mildly tender to palpation of suprapubic region without rebound tenderness or guarding. Normoactive bowel sounds x4. No hepatosplenomegaly. Negative Rovsing sign. No McBurney point tenderness. Negative Payne's sign. Inspection: Yes normal to inspection Other: + minimal left CVAT Back/Spine/Pelvis Other: No midline spinous tenderness or step-off deformity. Skin General skin exam: no rashes or lesions noted Neuro General: patient oriented x3, gait normal and no meningeal signs Extrem General: Yes normal to inspection Course Course Course Narrative: 1333-- CBC without leukocytosis or left shift. No anemia. H&H stable. Chemistry showing hypokalemia to 3. Magnesium WNL. Will replete with PO and IV potassium. No other acute electrolyte abnormality requiring intervention. Normal renal and liver function. Random glucose 158. Urine shows moderate amount of leukocyte esterase, 6-10 WBCs, 3-5 squamous epithelial cells and 1+ bacteria. Will treat UTI with antibiotics. CT scan abdomen/pelvis shows normal pancreas, unremarkable small and large bowel, normal appendix, along with enlarged liver at 17.8 cm and findings consistent with hepatic steatosis. There is no thickening of the gallbladder or obvious gallstone. On my interpretation, I do not note any ureteral or renal stones. Etiology of lower abdominal pain likely UTI. As labs show normal renal function without evidence of hydro on scan, low suspicion for obstructive uropathy. Stool panel negative for all organisms. CDiff test not performed by lab as stool is formed, not consistent with c diff. > all results discussed with patient. will repeat CBC after potassium repletion. 1740-- On repeat CBC, potassium normalized to 3.6. Cefuroxime sent to pharmacy for urinary tract infection. Patient has remained stable throughout ED visit today. Discussed worrisome signs and symptoms and when to return to the ED. All questions answered at this time. Patient is agreeable with disposition and stable for discharge. Medications Administered Discontinued Medications Generic Name Dose Route Start Last Admin Trade Name Freq PRN Reason Stop Dose Admin Cefuroxime Axetil 250 mg 10/16/23 17:34 10/16/23 17:42 Cefuroxime Axetil 250 Mg Tablet PO 10/16/23 17:35 250 mg ONCE ONE Administration Sodium Chloride 1,000 mls @ 999 mls/hr 10/16/23 10:00 10/16/23 11:16 Ns IV 10/16/23 11:00 Infused .Q1H1M LORE Infusion Potassium Chloride 10 meq in 100 mls @ 100 mls/hr 10/16/23 13:32 10/16/23 15:42 Potassium Chloride/H20 IV 10/16/23 14:31 Infused ONCE ONE Infusion Morphine Sulfate 2 mg 10/16/23 09:59 10/16/23 10:15 Morphine Sulfate 2 Mg/Ml Cartridge IVPUSH 10/16/23 10:00 2 mg ONCE ONE Administration Protocol Ondansetron HCl 4 mg 10/16/23 10:17 10/16/23 10:30 Ondansetron Odt 4 Mg Tab.Rapdis TRANSLINGU 10/16/23 10:18 Not Given ONCE ONE Potassium Chloride 40 meq 10/16/23 13:32 10/16/23 13:56 Potassium Chloride Packet 20 Meq Packet PO 10/16/23 13:33 40 meq ONCE ONE Administration Medical Decision Making Medical Decision Making MDM Narrative: 62 year old Haitian speaking female with pmhx significant for recurrent UTIs presents to the ED today for evaluation of lower abdominal pain, left flank pain, and soft stools x1 week. Vital signs stable, afebrile. She is nontoxic appearing in no acute distress. On exam, abdomen is soft, nondistended, mildly tender to palpation of the suprapubic region without rebound tenderness or guarding. Normoactive bowel sounds x4. Minimal left CVA tenderness. No midline spinous tenderness or step-off deformity. Ambulating with steady gait. No rashes. Skin warm, dry, intact. Differential diagnosis includes urinary tract infection, nephrolithiasis, hydronephrosis, renal colic, MSK sprain/strain, gastroenteritis. Low suspicion for pyelonephritis, diverticulitis, diverticulosis, IBD, appendicitis, cholecystitis, pancreatitis. Plan for basic labs, urinalysis, viral serology, CT abdomen/pelvis. GI panel and C diff tox obtained this morning outpatient. No need to repeat. Will re- evaluate. Differential Diagnosis Differential Diagnoses: The differential diagnosis associated with the presentation includes As above Admission/Observation Not indicated Lab Data MDM Lab Attestation statement: I reviewed the patient's lab results. As above 10/16/23 07:47 10/16/23 16:53 Labs: Lab Results 10/16/23 10/16/23 10/16/23 Range/Units 07:47 10:15 16:53 WBC 10.8 (4.8-10.8) X10*3/uL RBC 5.14 (4.20-5.50) X10*6/uL Hgb 13.3 (12.0-16.0) g/dl Hct 42.1 (37.0-47.0) % MCV 81.9 (80.0-98.0) fL MCH 25.9 L (27.0-33.0) pg MCHC 31.6 (31.0-35.0) g/dl RDW 14.1 (11.0-16.0) % Plt Count 324 (160-400) X10*3/uL MPV 10.1 (9.4-12.3) fL Immature Gran % (Auto) 0.4 (0.0-0.4) % Neut % (Auto) 64.9 (45-73) % Lymph % (Auto) 27.0 (20-40) % Sullivan % (Auto) 4.9 (2-11) % Eos % (Auto) 2.2 (0-4) % Baso % (Auto) 0.6 (0-2) % Lymph # (Auto) 2.9 (1.2-4.9) X10*3/uL Sullivan # (Auto) 0.5 (0.1-1.2) X10*3/uL Eos # (Auto) 0.2 (0.0-0.4) X10*3/uL Baso # (Auto) 0.1 (0.0-0.2) X10*3/uL Abs Immat Gran (auto) 0.04 H (0.00-0.03) X10*3/uL Absolute Neuts (auto) 7.0 (2.0-8.3) x10*3/uL Absolute Nucleated RBC 0.000 (0.0-0.012) X10*3/uL Nucleated RBC % (auto) 0.0 (0.0-0.2) /100WBC Sodium 143 143 (135-145) mmol/L Potassium 3.0 L D 3.6 (3.3-5.1) mmol/L Chloride 104 107 (96-108) mmol/L Carbon Dioxide 29 27 (22-29) mmol/L Anion Gap 13 13 (12-20) BUN 19 H 16 (9-16) mg/dL Creatinine 0.76 0.70 (0.5-1.4) mg/dL Estim Creat Clear Calc 70.9 76.9 Estimated GFR > 60 > 60 Random Glucose 158 H 89 (60-115) mg/dL Calcium 10.2 9.8 (8.4-10.2) mg/dL Magnesium 1.9 (1.6-2.6) mg/dL Total Bilirubin 0.4 (0.0-1.0) mg/dL AST 18 (5-31) U/L ALT 17 (0-31) U/L Alkaline Phosphatase 94 (39-117) U/L Total Protein 7.1 (6.5-8.0) g/dL Albumin 3.8 (3.5-5.0) g/dL Urine Color Yellow Urine Appearance Clear Urine pH 6.5 (5.0-9.0) Ur Specific [place] 1.025 (1.005-1.025) Urine Protein Negative (Neg-Trace) mg/dL Urine Glucose (UA) Negative (Negative) mg/dL Urine Ketones Negative (Negative) mg/dL Urine Blood Negative (Negative) Urine Nitrite Negative (Negative) Ur Leukocyte Esterase Moderate (2+) H (Negative) Urine RBC 0-2 (0-2) /HPF Urine WBC 6-10 H (0-5) /HPF Ur Squamous Epith Cells 3-5 (0-2) /HPF Urine Bacteria 1+ (None Seen) Hyaline Casts 0-2 (0-2) /LPF Stl C. cayetanensis PCR Not Detected (Not Detect.) Stool Rotavirus A PCR Not Detected (Not Detect.) Stl Adenov F 40/41 PCR Not Detected (Not Detect.) Stool Astrovirus (PCR) Not Detected (Not Detect.) Stool Campylobacter PCR Not Detected (Not Detect.) Stool Cryptosporidium PCR Not Detected (Not Detect.) Stl Sh Tox Pr E STEC PCR Not Detected (Not Detect.) Stool E coli O157 PCR Not applicable (Not Detect.) Stl Enterotoxigenic E PCR Not Detected (Not Detect.) Stool EPEC (PCR) Not Detected (Not Detect.) Stool EAEC (PCR) Not Detected (Not Detect.) Stl E. histolytica PCR Not Detected (Not Detect.) Stool Giardia Lamblia PCR Not Detected (Not Detect.) Stl P. shigelloides PCR Not Detected (Not Detect.) Stool Salmonella PCR Not Detected (Not Detect.) Stool Sapovirus (PCR) Not Detected (Not Detect.) Stl Shigella/EIEC PCR Not Detected (Not Detect.) St Y.enterocolitica PCR Not Detected (Not Detect.) Stool Vibrio (PCR) Not Detected (Not Detect.) Stl Vibrio cholerae PCR Not Detected (Not Detect.) Stl Norovirus GI/GII PCR Not Detected (Not Detect.) C. difficile Tox B Gene TNP Independent Interpretation I performed an independent interpretation of an: CT Scan Interpretation: CT scan abdomen/pelvis without obvious renal or ureteral stone, no hydro, agree with radiologist's interpretation. Radiology Impression Discussion of test interpretation with radiology: I have reviewed the radiologist's reading. Radiologist Impression: EXAMINATION: CT ABDOMEN AND PELVIS WITHOUT CONTRAST CLINICAL INFORMATION: lower abd pain, flank L flank pain COMPARISON: CT abdomen pelvis 09/14/2019 TECHNIQUE: Multidetector volumetric imaging was performed from the superior aspect of the liver through the pubic symphysis. Sagittal and coronal reformatted images were obtained on the technologist's workstation. This CT examination was performed using dose optimization techniques as appropriate, variously including the following: *Automated exposure control *Adjustment of mA and/or kV according to patient size (this includes techniques or standardized protocols for targeted exams where dose is matched to indication/reason for exam; i.e. extremities or head) *Use of iterative reconstruction technique DLP: 460 mGy-cm FINDINGS: LUNG BASES: The visualized lung bases are unremarkable. LIVER, GALLBLADDER, AND BILIARY TREE: The liver is enlarged at 17.8 cm with decreased attenuation consistent with hepatic steatosis. Focal areas of sparing are present around the filemon hepatis and gallbladder. No focal hepatic lesion or biliary ductal dilatation is present. The gallbladder is unremarkable with no evidence of radiopaque gallstones, gallbladder wall thickening, or obvious pericholecystic inflammatory changes. PANCREAS: Unremarkable. SPLEEN: Unremarkable. ADRENAL GLANDS: Unremarkable. KIDNEYS AND URETERS: The kidneys are normal in size, shape, and attenuation with the exception of a cortical scar at the upper pole of the left kidney unchanged from prior. No hydronephrosis, hydroureter, or calculi seen. No perinephric stranding. BLADDER: Unremarkable. Small amount of intramural fat is present. GASTROINTESTINAL TRACT: The small and large bowel are unremarkable. The appendix is unremarkable. ABDOMINAL WALL: No significant hernia is appreciated. LYMPH NODES: Normal. VASCULAR: Unremarkable. PELVIC VISCERA: The uterus and adnexa are unremarkable. OSSEOUS STRUCTURES: Unremarkable. CT/CT abdomen pelvis wo IV con IMPRESSION: 1. A cause for the patient's lower abdominal pain and left flank pain has not been found. 2. Incidental note made of an enlarged fatty liver and adrenal cortical scar upper pole left kidney. Fleischner guidelines were followed. Independent Historian Clinical information obtained from an independent historian. History obtained from or confirmed by: Other (daughter) Prescription Management I considered prescription management with: Antibiotic (ceftin) Chronic Conditions Patient?s care impacted by: Other (recurrent UTIs) Social Determinants Patient?s care significantly limited by Social Determinants of Health including: Other Social Determinant of Health Critical Care Time Critical Care Time Critical Care Time: Yes Total Critical Care Time: 45 Attestation: Critical care time in the amount of 45 minutes has been provided to the patient in terms of direct patient care, frequent reevaluation, review and interpretation of medical data and results, and management of potentially life- threatening conditions. This is all outside of any medical procedures. Discharge Plan Discharge Clinical Impression: Urinary tract infection, Fatty liver Patient Disposition: Home, Self-Care Instructions: Urinary Tract Infection in Older Adults (ED) Additional Instructions: Your lab work today is reassuring. Your urine is positive for infection. Ceftin is an antibiotic that has been sent to your pharmacy to treat this. Your stool was negative for infection. The CT scan of your abdomen shows a fatty liver, otherwise normal. Take tylenol and ibuprofen as needed. Follow up with PCP. If you do not have one, a referral has been provided to you. A referral to Urologist has been provided to you. Please call them to establish care. They will not call you. Return with new or worsening symptoms. In the case of an emergency call 911. Prescriptions: New cefuroxime axetil 250 mg tablet 250 mg PO BID 7 Days Qty: 14 0RF No Action cefuroxime axetil 250 mg tablet 250 mg PO BID 10 Days Qty: 20 0RF Referrals: [facility] [place] Medicine [Provider Group] [facility] [place] Primary CareIsabel [Provider Group] [facility] [place] Primary CareJohanna [Provider Group] [facility] [place] Urology Services [Provider Group] Interventions: ED Discharge Assessment Last Done: 10/16/23 17:48 Discharge Date/Time: 10/16/23 17:51 Print Language: Haitian
[2023-10-16 10:15] VITALS: RESP 22
[2023-10-16] MEDS: Morphine Sulfate 2 MG/ML CARTRIDGE IVPUSH (10:15)
[2023-10-16] MEDS: 0.9 % Sodium Chloride 1,000 ML 999 ML IV (10:15)
[2023-10-16 10:25] LABS: Appearance Urine Clear; Color Urine Yellow; Glucose Urine UA Negative (Negative); Leukocyte Esterase Urine Moderate (2+) (Negative); Nitrite Urine Negative (Negative); PH 6.5 (5.0-9.0); Specific Gravity - Urine 1.025 (1.005-1.025); UMIC TRIGGER UACC YES; Urine Blood Negative (Negative); Urine Ketones Negative (Negative); Urine Protein Negative (Neg-Trace)
--- NOTE | 2023-10-16 10:35 | PC.NURSE ---
Pt ambulates with a steady gait, AOx3, market analyst called, provider at bedside. Pt reporting dull Left sided flank pain was here yesterday, to give stool sample, but could not provide one so she brought it home, and came back with it today. Pt verbalizes that she came from [place] where she got placed on multiple ABX, pt states i have been on ABX for a year and a half. Pain on palpation, denies N/V jere. IVF running, resting quietly awaiting new orders.
[2023-10-16 10:54] LABS: Bacteria Urine 1+ (None Seen); Hyaline Casts Urine 0-2 /LPF (0-2); RBC Urine 0-2 /HPF (0-2); UACC Culture Trigger YES
[2023-10-16] MEDS: Potassium Chloride Packet 20 MEQ PACKET 40 MEQ PO (13:56)
[2023-10-16 13:57] LABS: Magnesium 1.9 mg/dL (1.6-2.6)
[2023-10-16] MEDS: Potassium Chloride/H20 10 MEQ/100 ML PIGGYBACK 100 MEQ IV (13:58)
[2023-10-16 17:12] LABS: Anion Gap 13 (12-20); Blood Urea Nitrogen 16 mg/dL (9-16); Calcium 9.8 mg/dL (8.4-10.2); Carbon Dioxide 27 mmol/L (22-29); Chloride 107 mmol/L (96-108); Creatinine Clr Calc Pharmacy 76.9; Estimated Glomerular Filt Rate > 60; Glucose Random 89 mg/dL (60-115); Potassium 3.6 mmol/L (3.3-5.1); Sodium 143 mmol/L (135-145)
[2023-10-16] MEDS: cefuroxime axetiL 250 MG TABLET PO (17:42)
[2023-10-16 17:48] VITALS: BP 135/62; PULSE 85; RESP 18; TEMP 36.9; O2SAT 99
== END 2023-10-16 17:51 | disposition home or self-care (01) ==
PROVIDERS: Physician Assistant Medical; Emergency Provider Emergency Medicine Emergency Medical Services; PCP Internal Medicine Geriatric Medicine
DX: N39.0 Urinary tract infection, site not specified (principal); K76.0 Fatty (change of) liver, not elsewhere classified; E87.6 Hypokalemia
CPT/HCPCS: 36415; 74176; 80048; 80053; 81001; 83735; 85025; 87086; 87493; 87507; 96361; 96365; 96366; 96375; 99284; J2270; J3480

== ENCOUNTER 2023-11-27 08:20 | Outpatient (REF) | payer MEDICAID, SELFPAY ==
[2023-11-27 09:47] LABS: Phosphorus 3.1 mg/dL (2.7-4.5)
[2023-11-27 09:57] LABS: Vitamin D 25-OH Total 30.9 ng/mL (>30)
[2023-11-29 21:33] LABS: Prot Elec - Albumin 3.8 g/dL (3.8-4.8); Prot Elec - Alpha1 0.3 g/dL (0.2-0.3); Prot Elec - Alpha2 0.7 g/dL (0.5-0.9); Prot Elec - Beta 1 0.5 g/dL (0.4-0.6); Prot Elec - Beta 2 0.4 g/dL (0.2-0.5); Prot Elec - Total Protein 6.7 g/dL (6.1-8.1)
== END 2023-11-27 08:21 | disposition home or self-care (01) ==
LOC: HO.LAB 08:20
PROVIDERS: Visit Provider Internal Medicine Endocrinology, Diabetes & Metabolism
DX: M81.0 Age-related osteoporosis without current pathological fracture (principal)
CPT/HCPCS: 82306; 84100; 84165; 86335

== ENCOUNTER 2023-11-29 07:53 | Emergency (ER) | payer MEDICAID, SELFPAY ==
--- NOTE | ~2023-11-29 | CT_ITS ---
EXAMINATION: CT ABDOMEN AND PELVIS WITH CONTRAST CLINICAL INFORMATION: Rectal pressure and left lower quadrant pain COMPARISON: 10/16/2023 TECHNIQUE: Multidetector volumetric images were obtained from the superior aspect of the liver through the pubic symphysis following administration 85 mL of Omnipaque 350 intravenous contrast. Sagittal and coronal reformatted images were obtained on the technologist's workstation. Oral contrast: No This CT examination was performed using dose optimization techniques as appropriate, variously including the following: *Automated exposure control *Adjustment of mA and/or kV according to patient size (this includes techniques or standardized protocols for targeted exams where dose is matched to indication/reason for exam; i.e. extremities or head) *Use of iterative reconstruction technique DLP: 487 mGy-cm FINDINGS: LUNG BASES: There is diffuse bronchial thickening and some nonspecific groundglass changes at the lung bases. No concerning masses, focal consolidations or pleural fluid is seen. LIVER, GALLBLADDER, AND BILIARY TREE: The liver is normal in size and shape with probable decreased attenuation consistent with hepatic steatosis with focal fatty sparing around the gallbladder and filemon hepatis similar to prior. No focal hepatic lesion or biliary ductal dilatation is present. The gallbladder is unremarkable with no evidence of radiopaque gallstones, gallbladder wall thickening, or obvious pericholecystic inflammatory changes. PANCREAS: Unremarkable. SPLEEN: Unremarkable. ADRENAL GLANDS: Unremarkable. KIDNEYS AND URETERS: The kidneys are normal in size, shape, and attenuation with the exception of a cortical scar at the upper pole the left kidney. No hydronephrosis, hydroureter, or calculi seen. No perinephric stranding. BLADDER: The bladder is only partially filled. Some mucosal fat is present unchanged from prior. GASTROINTESTINAL TRACT: The small and large bowel are unremarkable. The appendix is unremarkable. ABDOMINAL WALL: Small paraumbilical hernia contains only fat. LYMPH NODES: Normal. VASCULAR: Unremarkable. PELVIC VISCERA: The retroflexed uterus and adnexa are unremarkable. OSSEOUS STRUCTURES: Unremarkable. CT/CT abdomen pelvis w IV con IMPRESSION: 1. A cause for the patient's rectal pressure and left lower quadrant pain has not been found. 2. Incidental note made of bronchial thickening and some nonspecific groundglass changes at the lung bases, hepatic steatosis, left renal cortical scar and small paraumbilical hernia containing only fat. Fleischner guidelines were followed.
[2023-11-29 08:00] VITALS: BP 144/81; PULSE 71; RESP 16; TEMP 36.1; O2SAT 99; BMI 28.4
--- NOTE | 2023-11-29 08:22 | ED_ITS ---
HPI - General Adult General Chief complaint: General Medical Stated complaint: Lower back pain Time Seen by Provider: 11/29/23 08:14 Source: patient and RN notes reviewed Mode of arrival: ambulatory Limitations: no limitations History of Present Illness ED Provider: Marnie Palma PA-C HPI narrative: This is a [id number]-female, with a hx of frequent UTIs, who presents to the ER with complaints of intermittent abdominal pain, changes in stool, and rectal pressure x 3 months. Patient states that over the last 3 months she has had intermittent rectal pain and pressure along with abdominal pain. She states that she had a colonoscopy approximately 10 years ago and was told to follow-up in 5 years as there was some abnormalities. Patient states that she called her primary care physician to have a referral to her GI specialist for repeat colonoscopy however will not be able to be seen until the end of December. Patient states that over the last 3 months she initially had constipation is now having diarrhea. She states that she has had ?mucousy? stool. She states that she has been on antibiotics intermittently for urinary tract infections. Patient has had no fevers, chills, chest pain, shortness of breath, nausea, vomiting bloody or black stool. No profound weight loss. No night sweats. No other complaints or concerns at this time. MD complaint: Abdominal pain, rectal pressure Onset (ago): month(s) Relieving factors: none Exacerbating factors: none Associated symptoms: denies other symptoms Treatments prior to arrival: none Related Data Previous Rx's ?Medication ?Instructions ?Recorded cefuroxime axetil 250 mg tablet 250 mg PO BID 10 days #20 tabs 11/03/22 cefuroxime axetil 250 mg tablet 250 mg PO BID 7 days #14 tabs 10/16/23 cefuroxime axetil 250 mg tablet 250 mg PO BID 7 days #14 tabs 11/29/23 Allergies Allergy/AdvReac Type Severity Reaction Status Date / Time penicillin V Allergy Unknown Unknown Verified 11/29/23 08:06 Penicillins [PENICILLINS] Allergy Unknown UNKNOWN - Verified 11/29/23 08:06 RXN CHILD Review of Systems 2 Review of Systems: Yes all other systems are reviewed and are negative Constitutional: Constitutional: Reports as per HPI Physical Exam ED Vital Signs: Vital Signs - 24 hr 11/29/23 08:00 11/29/23 10:19 11/29/23 12:23 Temperature 96.9 F 98.2 F 98.2 F Pulse Rate 71 69 70 Respiratory Rate 16 18 18 Blood Pressure 144/81 H 116/66 111/68 Pulse Oximetry 99 98 98 Oxygen Delivery Method Room Air Room Air Room Air BMI result Body Mass Index 28.4 Const General: cooperative, comfortable and no acute distress Orientation/consciousness: patient oriented x3 Limitations: no limitations HENPR Head: Yes normal to inspection, Yes normocephalic and Yes atraumatic Ears: hearing grossly normal bilaterally General nose exam: Normal external nose present Face and sinus: Yes normal facial exam Mouth: Normal oral and palatal mucosa present, oropharynx normal and moist mucous membranes Throat: Yes posterior oropharynx normal Eyes General: appearance normal, both eyes and all related structures Eyelids: Yes eyelids normal Conjunctivae: conjunctivae normal Sclerae: sclerae normal Pupils: Equal, round and reactive pupils present EOM: EOMs intact bilaterally Neck Neck: Yes normal visual inspection, Yes full ROM and Yes no lymphadenopathy Lymphatic: no lymphadenopathy noted Chest Chest palpation & inspection: normal inspection of the chest Resp Effort & Inspection: normal respiratory effort and able to speak in complete sentences Auscultation: clear to auscultation bilaterally, no crackles, no rales, no rhonchi and no wheezes Cardio Rate: regular rate Rhythm: regular rhythm Heart sounds: S1 normal heart sound present and S2 normal heart sound present GI Other: Rectal examination performed with Apple Felder RN, present at all times. Patient does have external hemorrhoids, nonthrombosed or erythematous. Nontender. Good rectal tone, light brown stool noted. No internal hemorrhoids noted. No bloody or black stool. Inspection: Yes normal to inspection Skin General skin exam: no rashes or lesions noted Trauma: no lacerations or abrasions Wounds: no wounds Neuro General: patient oriented x3 and moves all extremities Cranial nerves: Yes Equal, round and reactive pupils present Extrem General: Yes normal to inspection Right upper extremity: normal to inspection Left upper extremity: normal to inspection Right lower extremity: normal to inspection Left lower extremity: normal to inspection Course Reevaluation(s) Reevaluation #1: Labs returned, unremarkable. Urine does appear to be infectious - however is contaminated. Patient had similar-appearing urinalysis performed on September 27, 2023 that grew E coli, sensitive to cephalosporins. Will treat as a urinary tract infection. CT scan revealing incidental finding of bronchial thickening nonspecific ground-glass changes at the bases, hepatic steatosis, left renal cortical scar and small paraumbilical hernia only containing fat. Awaiting C diff. Time: 12:06 Reevaluation #2: Still awaiting stool sample from patient, unable to provide one in the ER today. Discussed with patient to f/u with GI specialist due to change in stool and rectal pressure.Pt's workup today revealing no abnormalities or reason for admission. Discussed return precautions. Pt stable for d/c. Time: 13:07 Medications Administered Discontinued Medications Generic Name Dose Route Start Last Admin Trade Name Freq PRN Reason Stop Dose Admin Iohexol 100 ml 11/29/23 10:49 11/29/23 10:49 Iohexol 350 Mg/Ml 100 Ml Infus..Btl IV 11/29/23 10:50 85 ml ONCE ONE Administration Medical Decision Making Medical Decision Making [facility] Narrative: This is a 63-year-old female who presents emergency department with complaints of rectal pressure and pain for the last 2 months. She also reports intermittent blood in stool. She called her primary care physician and has a an appointment with her GI specialist next month however states that she does not want to wait this long given her symptoms. She also endorses some mucus in her stool. She has been on antibiotics recently for urinary tract infections. She denies any fevers, chills, chest pain, shortness of breath. Her abdomen is soft, she does have tenderness palpation in the left lower quadrant. Rectal examination reveals external hemorrhoids, no internal hemorrhoids felt. Stool guaiac negative. Differential diagnoses include colitis, diverticulitis, urinary tract infection, mass, diverticulosis, C diff Plan: Labs, urine, CT abdomen and pelvis Differential Diagnosis Differential Diagnoses: The differential diagnosis associated with the presentation includes See above Admission/Observation Consideration of admission/observation: Escalation of care including admission/observation considered Lab Data [facility] Lab Attestation statement: I reviewed the patient's lab results. Patient has no leukocytosis, chemistry nondiagnostic. No evidence of ALFRED. Urine positive nitrites, leuk esterases, and wbc's. They are 4+ bacteria and some epithelial cells. 11/29/23 09:38 11/29/23 09:38 Labs: Lab Results 11/29/23 11/29/23 11/29/23 Range/Units 09:13 09:25 09:38 WBC 9.6 (4.8-10.8) X10*3/uL RBC 5.11 (4.20-5.50) X10*6/uL Hgb 13.2 (12.0-16.0) g/dl Hct 41.5 (37.0-47.0) % MCV 81.2 (80.0-98.0) fL MCH 25.8 L (27.0-33.0) pg MCHC 31.8 (31.0-35.0) g/dl RDW 14.6 (11.0-16.0) % Plt Count 301 (160-400) X10*3/uL MPV 10.7 (9.4-12.3) fL Immature Gran % (Auto) 0.3 (0.0-0.4) % Neut % (Auto) 66.9 (45-73) % Lymph % (Auto) 25.2 (20-40) % Bland % (Auto) 5.2 (2-11) % Eos % (Auto) 1.8 (0-4) % Baso % (Auto) 0.6 (0-2) % Lymph # (Auto) 2.4 (1.2-4.9) X10*3/uL Bland # (Auto) 0.5 (0.1-1.2) X10*3/uL Eos # (Auto) 0.2 (0.0-0.4) X10*3/uL Baso # (Auto) 0.1 (0.0-0.2) X10*3/uL Abs Immat Gran (auto) 0.03 (0.00-0.03) X10*3/uL Absolute Neuts (auto) 6.5 (2.0-8.3) x10*3/uL Absolute Nucleated RBC 0.000 (0.0-0.012) X10*3/uL Nucleated RBC % (auto) 0.0 (0.0-0.2) /100WBC Sodium 144 (135-145) mmol/L Potassium 3.3 (3.3-5.1) mmol/L Chloride 104 (96-108) mmol/L Carbon Dioxide 35 H (22-29) mmol/L Anion Gap 8 L (12-20) BUN 18 H (9-16) mg/dL Creatinine 0.76 (0.5-1.4) mg/dL Estim Creat Clear Calc 69.6 Estimated GFR > 60 Random Glucose 112 (60-115) mg/dL Calcium 10.1 (8.4-10.2) mg/dL Magnesium 2.1 (1.6-2.6) mg/dL Total Bilirubin 0.5 (0.0-1.0) mg/dL Direct Bilirubin 0.2 (0.0-0.5) mg/dL AST 17 (5-31) U/L ALT 13 (0-31) U/L Alkaline Phosphatase 84 (39-117) U/L Total Protein 7.3 (6.5-8.0) g/dL Albumin 4.0 (3.5-5.0) g/dL Lipase 23 (8-78) U/L Urine Color Yellow Urine Appearance Hazy Urine pH 7.0 (5.0-9.0) Ur Specific Wade 1.020 (1.005-1.025) Urine Protein Negative (Neg-Trace) mg/dL Urine Glucose (UA) Negative (Negative) mg/dL Urine Ketones Negative (Negative) mg/dL Urine Blood Negative (Negative) Urine Nitrite Positive H (Negative) Ur Leukocyte Esterase Small (1+) H (Negative) Urine RBC 0-2 (0-2) /HPF Urine WBC 21-50 H (0-5) /HPF Ur Squamous Epith Cells 3-5 (0-2) /HPF Urine Bacteria 4+ (None Seen) Hyaline Casts 0-2 (0-2) /LPF Stool Occult Blood NEGATIVE (NEGATIVE) Radiology Impression Discussion of test interpretation with radiology: I have reviewed the radiologist's reading. External Record Review External record reviewed: Inpatient record, Office record, Outpatient record, Prior outpatient labs, Prior outpatient radiology, Primary care record and Outside ED record Discharge Plan Discharge Clinical Impression: Abdominal pain, Change in stool habits, UTI (urinary tract infection) Patient Disposition: Home, Self-Care Instructions: Abdominal Pain (ED) Additional Instructions: You were seen in the emergency department due to abdominal pain and changes in bowel habits. Your blood work was reassuring. Your urine does appear to be infected. I am prescribing you an antibiotic, please finish the entire course even if you are feeling better. Drink plenty of fluids get plenty of rest. We will call you we need to switch the antibiotic we placed you on. Please follow-up with GI, you can call your GI specialist to see if they are able to move up your appointment. You may also call our GI specialist call to make an appointment. If any new or worsening symptoms occur, including but not limited to severe abdominal pain, nausea, vomiting, please return for re-evaluation. Prescriptions: New cefuroxime axetil 250 mg tablet 250 mg PO BID 7 Days Qty: 14 0RF No Action cefuroxime axetil 250 mg tablet 250 mg PO BID 10 Days Qty: 20 0RF cefuroxime axetil 250 mg tablet 250 mg PO BID 7 Days Qty: 14 0RF Referrals: [facility] [place] Gastroenterology Services [Provider Group] Interventions: ED Discharge Assessment Last Done: 11/29/23 14:30 Discharge Date/Time: 11/29/23 14:30 Print Language: Tajik
[2023-11-29 09:18] LABS: OBS Int Ctl Valid YES; OBS1 NEGATIVE (NEGATIVE)
[2023-11-29 09:31] LABS: Appearance Urine Hazy; Color Urine Yellow; Glucose Urine UA Negative (Negative); Leukocyte Esterase Urine Small (1+) (Negative); Nitrite Urine Positive (Negative); UMIC TRIGGER UACC YES; Urine Blood Negative (Negative); Urine Ketones Negative (Negative); Urine Protein Negative (Neg-Trace)
[2023-11-29 09:36] LABS: Bacteria Urine 4+ (None Seen); Hyaline Casts Urine 0-2 /LPF (0-2); UACC Culture Trigger YES; WBC Urine 21-50 /HPF (0-5)
[2023-11-29 09:37] LABS: RBC Urine 0-2 /HPF (0-2)
[2023-11-29 09:44] LABS: MANUAL DIFF FLAG NO
[2023-11-29 09:46] LABS: Basophils Absolute Auto 0.1 X10*3/uL (0.0-0.2); Basophils Percent Auto 0.6 % (0-2); Eosinophils Absolute Auto 0.2 X10*3/uL (0.0-0.4); Eosinophils Percent Auto 1.8 % (0-4); Hematocrit 41.5 % (37.0-47.0); Hemoglobin 13.2 g/dl (12.0-16.0); Imm Gran Abs Auto 0.03 X10*3/uL (0.00-0.03); Imm Gran Pct Auto 0.3 % (0.0-0.4); Lymphocytes Absolute Auto 2.4 X10*3/uL (1.2-4.9); Lymphocytes Percent Auto 25.2 % (20-40); Mean Corpuscular HGB Conc 31.8 g/dl (31.0-35.0); Mean Corpuscular Hemoglobin 25.8 pg (27.0-33.0); Mean Corpuscular Volume 81.2 fL (80.0-98.0); Mean Platelet Volume 10.7 fL (9.4-12.3); Monocytes Absolute Auto 0.5 X10*3/uL (0.1-1.2); Monocytes Percent Auto 5.2 % (2-11); Neutrophils Absolute Auto 6.5 x10*3/uL (2.0-8.3); Neutrophils Percent Auto 66.9 % (45-73); Platelet Count 301 X10*3/uL (160-400); Red Blood Count 5.11 X10*6/uL (4.20-5.50); Red Cell Distribution Width 14.6 % (11.0-16.0); White Blood Count 9.6 X10*3/uL (4.8-10.8)
[2023-11-29 10:03] LABS: Alanine Aminotransferase 13 U/L (0-31); Alkaline Phosphatase 84 U/L (39-117); Anion Gap 8 (12-20); Aspartate Amino Transferase 17 U/L (5-31); Bilirubin Direct 0.2 mg/dL (0.0-0.5); Bilirubin Total 0.5 mg/dL (0.0-1.0); Blood Urea Nitrogen 18 mg/dL (9-16); Calcium 10.1 mg/dL (8.4-10.2); Carbon Dioxide 35 mmol/L (22-29); Chloride 104 mmol/L (96-108); Creatinine Clr Calc Pharmacy 69.6; Estimated Glomerular Filt Rate > 60; Glucose Random 112 mg/dL (60-115); Lipase 23 U/L (8-78); Magnesium 2.1 mg/dL (1.6-2.6); Potassium 3.3 mmol/L (3.3-5.1); Sodium 144 mmol/L (135-145); Total Protein 7.3 g/dL (6.5-8.0)
[2023-11-29 10:19] VITALS: BP 116/66; PULSE 69; RESP 18; TEMP 36.8; O2SAT 98
[2023-11-29] MEDS: iohexoL 350 MG/ML 100 ML INFUS..BTL IV (10:49)
[2023-11-29 12:23] VITALS: BP 111/68; PULSE 70; RESP 18; TEMP 36.8; O2SAT 98
[2023-11-29 14:30] VITALS: BP 111/68; PULSE 70; RESP 18; TEMP 36.8; O2SAT 98
== END 2023-11-29 14:30 | disposition home or self-care (01) ==
PROVIDERS: Physician Assistant Medical; Emergency Provider Emergency Medicine; PCP Internal Medicine Geriatric Medicine
DX: N39.0 Urinary tract infection, site not specified (principal); B96.20 Unspecified Escherichia coli [E. coli] as the cause of diseases classified elsewhere; R19.4 Change in bowel habit; R10.9 Unspecified abdominal pain; Z87.440 Personal history of urinary (tract) infections
CPT/HCPCS: 36415; 74177; 80048; 80076; 81001; 82272; 83690; 83735; 85025; 87086; 87088; 87186; 99283; 99284; Q9967

== ENCOUNTER 2023-11-29 08:19 | Outpatient (REF) | payer MEDICAID, SELFPAY ==
[2023-11-29 09:07] LABS: Creatinine, mg/dL 111.43
[2023-11-29 09:18] LABS: Creatinine, 24Hr Urine 1.1 G/Day (1.0-2.0); Total Volume 24 Hour Urine 975 mL
[2023-12-06 13:58] LABS: Calcium, 24 Hr Urine 66 mg/24 h; Calcium/Creatinine Ratio 61 mg/g creat (30-275); Creatinine 24Hr Urine 1.09 g/24 h (0.50-2.15)
== END 2023-11-29 08:20 | disposition home or self-care (01) ==
LOC: HO.LNP 08:19
PROVIDERS: Visit Provider Internal Medicine Endocrinology, Diabetes & Metabolism
DX: M81.0 Age-related osteoporosis without current pathological fracture (principal)
CPT/HCPCS: 82340; 82570

== ENCOUNTER 2023-11-30 08:11 | Outpatient (REF) | payer MEDICAID, SELFPAY ==
[2023-11-30 10:15] LABS: CDiff Gene PCR POSITIVE (Negative)
[2023-11-30 11:00] LABS: Adenovirus F 40/41 Not Detected (Not Detect.); Astrovirus Not Detected (Not Detect.); Campylobacter Not Detected (Not Detect.); Cryptosporidium Not Detected (Not Detect.); Cyclospora cayetanensis Not Detected (Not Detect.); E. coli EAEC Not Detected (Not Detect.); E. coli EPEC Not Detected (Not Detect.); E. coli ETEC Not Detected (Not Detect.); E. coli STEC Not Detected (Not Detect.); Entamoeba histolytica Not Detected (Not Detect.); Giardia lamblia Not Detected (Not Detect.); Norovirus GI/GII Not Detected (Not Detect.); Plesiomonas shigelloides Not Detected (Not Detect.); Rotavirus A Not Detected (Not Detect.); Salmonella Not Detected (Not Detect.); Sapovirus Not Detected (Not Detect.); Shigella sp./EIEC Not Detected (Not Detect.); Vibrio Not Detected (Not Detect.); Vibrio Cholerae Not Detected (Not Detect.); Yersinia enterocolitica Not Detected (Not Detect.)
[2023-11-30 11:12] LABS: CDiff Toxin Positive (Negative)
[2023-11-30 11:13] LABS: CDIFF Internal ctrl Dots and bkg OK (V)
== END 2023-11-30 08:12 | disposition home or self-care (01) ==
LOC: HO.LNP 08:11
PROVIDERS: Visit Provider Physician Assistant
DX: Z13.89 Encounter for screening for other disorder (principal)
CPT/HCPCS: 87324; 87493; 87507

== ENCOUNTER 2023-12-04 09:09 | Outpatient (AMB) | payer MEDICAID, SELFPAY ==
--- NOTE | 2023-12-04 09:20 | A.OFFVIS_ITS ---
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 She is a patient of Dr. Scanlon. She has seen for the following urologic conditions - recurrent UTI Translation provided by her Recurrent UTI Ongoing for the past 18 months Multiple positive cultures with E coli. Levaquin and ampicillin resistant. Prior hysterectomy and oophorectomy CT scan abdomen and bladder normal Recommend Estrace cream, fluids, fiber, bowel control, suppression antibiotics - plan cystoscopy Review of Systems Const Denies chills and Denies fever(s) Card Reports no additional complaints and Denies syncope Resp Denies cough GI Denies abdominal pain and Denies heartburn Reports as per HPI and Denies change in libido Neuro Denies syncope Psych Denies change in libido Endo Denies change in libido Physical Exam Const General: cooperative, healthy appearing, comfortable and no acute distress Orientation/consciousness: patient oriented x3 HEENT Face and sinus: Yes normal facial exam Mouth: moist mucous membranes Neck Neck: Yes normal visual inspection, Yes full ROM and Yes trachea midline Chest Chest palpation & inspection: normal inspection of the chest Resp Effort & Inspection: normal respiratory effort, able to speak in complete sentences and no respiratory distress GI Inspection: Yes normal to inspection Back/Spine/Pelvis Cervical Spine: normal cervical lordosis Thoracic/Lumbar Spine: thoracic and lumbar spine normal to inspection Skin General skin exam: no rashes or lesions noted Neuro General: patient oriented x3, gait normal, tone normal and moves all extremities Extrem General: Yes normal to inspection and Yes capillary refill normal Results AMB Urinalysis, Automated UA Leukoctes 70 Vane/uL Last Edit by ALMA Guerrero on 12/04/23 09:37 UA Nitrite Negative Last Edit by ALMA Guerrero on 12/04/23 09:37 UA Urobilinogen 0.2 mg/dL Last Edit by ALMA Guerrero on 12/04/23 09:3 7 UA Protein 15 mg/dL Last Edit by ALMA Guerrero on 12/04/23 09:37 UA pH 6.0 Last Edit by ALMA Guerrero on 12/04/23 09:37 UA Blood 0 [place]/uL Last Edit by ALMA Guerrero on 12/04/23 09:37 UA Specific [place] 1.015 Last Edit by ALMA Guerrero on 12/04/23 09: 37 UA Ketone Negative Last Edit by ALMA Guerrero on 12/04/23 09:37 UA Bilirubin 0 mg/dL Last Edit by ALMA Guerrero on 12/04/23 09:37 UA Glucose 0 mg/dL Last Edit by ALMA Guerrero on 12/04/23 09:37 Results Reviewed Results Reviewed: Laboratory Last Values Urine pH (Auto) 6.0 12/04/23 09:35 Specific [place] (Auto) 1.015 12/04/23 09:35 Urine Protein (Auto) 15 mg/dL 12/04/23 09:35 Glucose (UA)(Auto) 0 mg/dL 12/04/23 09:35 Urine Ketones (Auto) Negative 12/04/23 09:35 Urine Blood (Auto) 0 [place]/uL 12/04/23 09:35 Urine Nitrite (Auto) Negative 12/04/23 09:35 Urine Bilirubin (Auto) 0 mg/dL 12/04/23 09:35 Urine Urobilinogen (Auto) 0.2 mg/dL 12/04/23 09:35 Leukocyte Esterase (Auto) 70 Vane/uL 12/04/23 09:35 Assessment & Plan Assessment & Plan (1) Recurrent UTI: Code(s): N39.0 - Urinary tract infection, site not specified Category: Medical Plan Suppression Esterase Orders: Orders AMB Urinalysis Automated Today Z13.9 - Encounter for screening, unspecified Medications: New sulfamethoxazole-trimethoprim 400-80 mg (Bactrim) 1 tab PO BEDTIME 90 days 90 tabs 0RF N39.0 - Urinary tract infection, site not specified estradiol 0.01%(0.1mg/gram) pea-sized to urethra 3 times a week 30 days 42.5 grams 2RF 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 No major barriers to patient understanding were identified. An opportunity to ask questions regarding the treatment plan was provided. All questions were answered. The patient expressed understanding and agreement with the above treatment plan. The patient is aware they should contact our office by phone for worsening of their current condition or the appearance of new urologic symptoms. Compliance is encouraged with any medications and followup testing that is ordered. It is a privilege to participate in the urologic care of your patient. If you have any questions or concerns regarding treatment for the above conditions, or other urologic issues, please do not hesitate to contact me. The office telephone contact is [phone]. This note is constructed using voice recognition software. While every effort has been made to ensure accuracy traffic checker errors may have been included. Yours sincerely, Dr Alex Ibanez MD, [facility] - Urology Providers of Expert, Compassionate Care for the Genitourinary System Coding Level of Care Code New Pt Level 4 (76904) Diagnoses Recurrent UTI N39.0
== END 2023-12-04 10:05 | disposition home or self-care (01) ==
PROVIDERS: PCP Internal Medicine Geriatric Medicine; Visit Provider Urology
DX: N39.0 Urinary tract infection, site not specified (principal); Z13.9 Encounter for screening, unspecified
CPT/HCPCS: 99204

== ENCOUNTER → 2023-12-04 09:09 | Outpatient (BNVA) | payer MEDICAID, SELFPAY | PROVIDERS: PCP Internal Medicine Geriatric Medicine; Visit Provider Urology | DX: N39.0 Urinary tract infection, site not specified (principal) | CPT/HCPCS: 81003; 99202 ==

== ENCOUNTER 2023-12-11 10:36 | Outpatient (REF) | payer MEDICAID, SELFPAY ==
[2023-12-11 11:00] LABS: MANUAL DIFF FLAG NO
[2023-12-11 11:34] LABS: Basophils Absolute Auto 0.1 X10*3/uL (0.0-0.2); Basophils Percent Auto 0.7 % (0-2); Eosinophils Absolute Auto 0.2 X10*3/uL (0.0-0.4); Eosinophils Percent Auto 1.8 % (0-4); Hematocrit 40.8 % (37.0-47.0); Imm Gran Abs Auto 0.07 X10*3/uL (0.00-0.03); Imm Gran Pct Auto 0.6 % (0.0-0.4); Lymphocytes Absolute Auto 3.4 X10*3/uL (1.2-4.9); Lymphocytes Percent Auto 26.9 % (20-40); Mean Corpuscular HGB Conc 31.9 g/dl (31.0-35.0); Mean Corpuscular Hemoglobin 25.7 pg (27.0-33.0); Mean Corpuscular Volume 80.6 fL (80.0-98.0); Mean Platelet Volume 10.7 fL (9.4-12.3); Monocytes Percent Auto 7.9 % (2-11); Neutrophils Absolute Auto 7.7 x10*3/uL (2.0-8.3); Neutrophils Percent Auto 62.1 % (45-73); Platelet Count 330 X10*3/uL (160-400); Red Blood Count 5.06 X10*6/uL (4.20-5.50); Red Cell Distribution Width 14.7 % (11.0-16.0); White Blood Count 12.4 X10*3/uL (4.8-10.8)
[2023-12-11 12:32] LABS: T4 Thyroxine 7.9 ug/dL (4.5-12.0)
[2023-12-20 16:33] LABS: Acetylcholine Recept. Blocking 58 (<15)
[2023-12-28 18:22] LABS: Acetylcholine Recep Modulating 77
== END 2023-12-11 10:37 | disposition home or self-care (01) ==
LOC: HO.LAB 10:36
PROVIDERS: PCP Internal Medicine Geriatric Medicine; Visit Provider Psychiatry & Neurology Neurology
DX: G70.00 Myasthenia gravis without (acute) exacerbation (principal)
CPT/HCPCS: 36415; 82550; 84436; 84443; 85025; 86041; 86042; 86043

== ENCOUNTER 2023-12-12 15:26 | Outpatient (AMB) | payer MEDICAID, SELFPAY ==
[2023-12-12 15:29] VITALS: BP 118/74; PULSE 75; BMI 28.6
--- NOTE | 2023-12-12 15:29 | MHC.OFFVIS ---
Vital Signs 12/12/23 15:29 Height 5 ft 2 in Weight 156 lb 4.924 oz BMI 28.6 BP 118/74 Blood Pressure Location Lt brachial Pulse 75 Intake Visit Reasons: Osteoporosis-confirmed Intake Note: Patient present today for Thyroid cancer and vitamin D deficiency follow up visit. Post Acute Care Registered Nurse Required: Yes Post Acute Care Registered Nurse Language: Dispatcher [employer]obile Rental Name: Hernando Information Interpreted: non-clinical & clinical Accompanied by: Spouse Allergies penicillin V Allergy (Unknown, Verified 12/12/23 15:39) Unknown Penicillins [PENICILLINS] Allergy (Unknown, Verified 12/12/23 15:39) UNKNOWN - RXN CHILD Medication List - Last Reconciled 12/12/23 by Juan Estevez MD azathioprine 50 mg PO TID cefuroxime axetil 250 mg PO BID 7 days chlorthalidone 25 mg PO DAILY estradiol 0.01%(0.1mg/gram) pea-sized to urethra 3 times a week 30 days pyridostigmine bromide 60 mg PO TID sulfamethoxazole-trimethoprim 400-80 mg (Bactrim) 1 tab PO BEDTIME 90 days vancomycin 125 mg PO QID HPI Comments Details: 63 YO Female with is seen in consultation at the request of PCP for Osteoporosis. First diagnosed in >10 yrs .Never saw endo before Received treatment in the past with alendronate , from 6 to 7 yrs ago for 5 yrs . Got 1 dose of Reclast Tolerated treatment well without complication. No history of pathologic fracture or ONJ.Fx L knee after fall 5 yrs ago after treatment Has ? servings of dietary calcium per day Not Takes Calcium supplement . Takes ? IU of Vitamin D daily. Denies ever using PPI, anticoagulant, antiepileptic or glucocorticoid medication. 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 UTD on dental cleanings and sees dentist every 6 months. Has upcoming dental work and extractions. DXA dated :03/03/22: FINDINGS: AP SPINE L1-L4: Current: BMD 0.834 g/cm2, Z-score -1.8, T-score -2.9, osteoporosis, 7.9% decrease from baseline (<5% change is not significant). Baseline: BMD 0.906 g/cm2. LEFT FEMUR, NECK: Current: BMD 0.667 g/cm2, Z-score -1.5, T-score -2.7, osteoporosis. Baseline: BMD 0.818 g/cm2. LEFT FEMUR, TOTAL: Current: BMD 0.742 g/cm2, Z-score -1.3, T-score -2.1, osteopenia, 11.9% decrease from baseline (<5% change is not significant). Baseline: BMD 0.842 g/cm2. IDENTIFIED RISK FACTORS: Early menopause, glucocorticoids (chronic), history of fracture (adult), hysterectomy, osteoporosis, secondary osteoporosis. HISTORY OF FRACTURE: Knee. MEDICATIONS: Calcium, vitamin D, Prolia. MM/XR DEXA axial skeleton IMPRESSION: 1. DIAGNOSIS: Osteoporosis based on the lowest T-score value of -2.9 in the lumbar spine applying World Health Organization criteria. Labs: [facility] Medical History (Updated 12/12/23 @ 15:42 by Juan Estevez MD) Osteoporosis Surgical History (Updated 12/12/23 @ 11:58 by Holly Braga) Hx of hysterectomy Hx of bilateral oophorectomy Family History (Updated 12/12/23 @ 11:57 by Holly Braga) Mother Diabetes Hyperlipidemia HTN (hypertension) Myasthenia gravis Father Diabetes HTN (hypertension) Social History (Updated 12/12/23 @ 11:54 by Holly Braga) Household Members: Spouse and Children Alcohol intake: never Patient Tobacco Use Status: Never used Tobacco Physical Exam Vital Signs: Last Vital Signs Pulse 75 12/12/23 15:29 BP 118/74 12/12/23 15:29 BMI result Body Mass Index 28.6 There are no Cushingoid features. Absence of blue sclera. Absence of kyphosis. Thyroid gland is of nl size and weighs 15 gms. There are no thyroid nodules palpated. Lungs CTA. Heart S1 S2 Reg R/R Abdominal exam benign. Muscle strength 5/5 . Examination of spine reveals absence of tenderness on palpation Assessment & Plan Assessment & Plan (1) Osteoporosis: Code(s): M81.0 - Age-related osteoporosis without current pathological fracture Category: Medical Plan: This is a 63-year-old female with a history of osteoporosis with complete secondary workup negative. She has received 5 years of bisphosphonate therapy in the past. Plan is to ensure calcium 1200 mg day as well as vitamin D3 2000-units per day. Will check urine NTX. If urine NTX is suppressed, would hold off on further anti resorptive therapy. If urine NTX is elevated, may consider treatment with Prolia. Would hold off on giving any anti resorptive therapy until after dental work is done Orders: Orders Collagen Crosslinks NTX Today M81.0 - Age-related osteoporosis without current pathological fracture Coding Level of Care Code New Pt Level 4 (29221) Diagnoses Osteoporosis M81.0
== END 2023-12-12 16:20 | disposition home or self-care (01) ==
PROVIDERS: PCP Internal Medicine Geriatric Medicine; Referring Provider Internal Medicine Geriatric Medicine; Visit Provider Internal Medicine Endocrinology, Diabetes & Metabolism
DX: M81.0 Age-related osteoporosis without current pathological fracture (principal)
CPT/HCPCS: 99204

== ENCOUNTER → 2023-12-12 15:26 | Outpatient (BNVA) | payer MEDICAID, SELFPAY | PROVIDERS: PCP Internal Medicine Geriatric Medicine; Visit Provider Internal Medicine Endocrinology, Diabetes & Metabolism | DX: M81.0 Age-related osteoporosis without current pathological fracture (principal) | CPT/HCPCS: 99202 ==

== ENCOUNTER 2023-12-21 10:10 | Inpatient (IN) | payer MEDICAID, SELFPAY ==
[2023-12-21] VITALS (10 sets, daily range): BP systolic 95–155; BP diastolic 55–103; PULSE 76–117; RESP 16–30; TEMP 36.1–37.8; O2SAT 96–98; BMI 28.7
--- NOTE | 2023-12-21 | ECG_ITS ---
Test Reason : Palpitations Blood Pressure : / mmHG Vent. Rate : 078 BPM Atrial Rate : 078 BPM P-R Int : 124 ms QRS Dur : 088 ms QT Int : 392 ms P-R-T Axes : 028 037 010 degrees QTc Int : 446 ms Normal sinus rhythm Normal ECG When compared with ECG of 21-DEC-2023 11:47, No significant change was found Referred By: Curtis Genao Electronically Signed By:Isaiah Real
--- NOTE | ~2023-12-21 | CT_ITS ---
EXAMINATION: CT ABDOMEN AND PELVIS WITH CONTRAST CLINICAL INFORMATION: Flank pain, urinary tract infection COMPARISON: CT scan of abdomen and pelvis on 11/29/2023 TECHNIQUE: Multidetector volumetric images were obtained from the superior aspect of the liver through the pubic symphysis following administration 85 mL of Omnipaque 350 intravenous contrast. Sagittal and coronal reformatted images were obtained on the technologist's workstation. Oral contrast: No This CT examination was performed using dose optimization techniques as appropriate, variously including the following: *Automated exposure control *Adjustment of mA and/or kV according to patient size (this includes techniques or standardized protocols for targeted exams where dose is matched to indication/reason for exam; i.e. extremities or head) *Use of iterative reconstruction technique DLP: 537 mGy-cm FINDINGS: LUNG BASES: Bilateral lung bases are clear. LIVER: No focal lesion is seen in the liver. GALLBLADDER AND BILIARY TREE: Gallbladder appears unremarkable without calcified stones. Common bile duct is not dilated. SPLEEN: The spleen is normal in size without focal lesion. PANCREAS: The pancreas appears unremarkable. ADRENAL GLANDS: Adrenal glands are normal in size without focal lesion bilaterally. KIDNEYS: Bilateral kidneys are normal in size with tiny simple cyst in lateral superior right renal cortex measuring 0.8 cm in diameter, mean attenuation of 29 Hounsfield units, for which no follow up imaging is recommended. There is prominence of bilateral extrarenal pelvises. Irregular cortical defects are seen in superior left renal pole. Multiple poorly demarcated hypoenhancing areas are seen in the left upper and mid renal cortex. BOWELS: There is mild fecal distention of ascending and transverse colon. RETROPERITONEUM: No abnormally enlarged retroperitoneal lymph nodes, mass or hematoma could be seen. BLOOD VESSELS: Abdominal aorta is normal in size and smoothly patent. ABDOMINAL WALL: Medium-sized left periumbilical hernia containing mesenteric fat is seen. PERITONEUM: There was no ascites. There were no abdominal peritoneal inflammatory changes seen. No free peritoneal air was seen. No abnormally enlarged mesenteric lymph nodes are found. BONES: Mild posterior L5-S1 disc protrusion is present. No fracture or dislocation. No focal bone lesion diagnostic of metastatic disease could be seen in the lumbar region. EXAMINATION: CT pelvis. FINDINGS: URINARY BLADDER: Urinary bladder fills normally with urine. BOWELS: There is no abnormal dilatation of the large and small bowel loops. Unchanged normal appendix is seen projecting medial to the cecum.. GENITAL ORGANS: No adnexal mass lesion could be seen. The uterus is unremarkable. LYMPH NODES: No abnormally enlarged iliac or inguinal lymph nodes are seen. PERITONEUM: No inflammatory changes, ascites or free peritoneal air are found in the pelvis. BONES: No fracture or dislocation. No focal bone lesion diagnostic of metastatic disease could be seen in the pelvis. CT/CT abdomen pelvis w IV con IMPRESSION: 1. Unchanged Irregular cortical defects are seen in superior left renal pole, compatible with previous pyelonephritis, renal infarct or obstructive uropathy. 2. Interval development of Multiple poorly demarcated hypoenhancing areas in the left upper and mid renal cortex. Findings are suspicious for pyelonephritis. 3. Unchanged Medium-sized left periumbilical hernia containing mesenteric fat. 4. Unchanged Mild posterior L5-S1 disc protrusion. 5. Recurrent Mild fecal distention of ascending and transverse colon. Fleischner guidelines were followed.
--- NOTE | 2023-12-21 10:45 | ED_ITS ---
HPI - General Adult General Chief complaint: Abdominal Pain Stated complaint: Fever Time Seen by Provider: 12/21/23 10:32 Source: patient Mode of arrival: ambulatory Limitations: no limitations History of Present Illness ED Provider: Jayce BAKER HPI narrative: 63-year-old female recent history of C diff recently completed p.o. vanco treatment, recurrent UTIs, osteoporosis presents to the emergency department with fatigue, malaise, myalgias, urinary frequency, abdominal pain , fevers and chills and intermittent diarrhea going on for the past few weeks. Patient reports she just had C diff on 11/29/2023, was given antibiotics which she completed yesterday. Also reports she has been getting UTIs. She reports her diarrhea is not much better. She has just not been feeling well. Also having some chest burning. No associated shortness of breath. No sick contacts. No cough, nausea, vomiting, headache, vision changes, blood in stool or vomit Related Data Home Medications ?Medication ?Instructions ?Recorded ?Confirmed azathioprine 50 mg tablet 50 mg PO TID 12/12/23 chlorthalidone 25 mg tablet 25 mg PO DAILY 12/12/23 pyridostigmine bromide 60 mg tablet 60 mg PO TID 12/12/23 vancomycin 125 mg capsule 125 mg PO QID 12/12/23 Previous Rx's ?Medication ?Instructions ?Recorded cefuroxime axetil 250 mg tablet 250 mg PO BID 7 days #14 tabs 11/29/23 estradiol 0.01% (0.1 mg/gram) See Rx Instructions .Route 3XW 30 12/04/23 vaginal cream days #42.5 grams sulfamethoxazole 400 1 tab PO BEDTIME 90 days #90 tabs 12/04/23 mg-trimethoprim 80 mg tablet (Bactrim) Allergies Allergy/AdvReac Type Severity Reaction Status Date / Time penicillin V Allergy Unknown Unknown Verified 12/21/23 10:16 Penicillins [PENICILLINS] Allergy Unknown UNKNOWN - Verified 12/21/23 10:16 RXN CHILD Review of Systems 2 Review of Systems: Yes all other systems are reviewed and are negative [facility] Past Medical History Attestation statement: The following information was validated with the patient. Source: old records reviewed and nursing notes reviewed Medical History (Updated 12/21/23 @ 12:43 by EVANGELIST Nunez) Osteoporosis Surgical History Hx of hysterectomy Hx of bilateral oophorectomy Family History Family History Mother Diabetes Hyperlipidemia HTN (hypertension) Myasthenia gravis Father Diabetes HTN (hypertension) Social History Social History Household Members: Spouse and Children Alcohol intake: never Patient Tobacco Use Status: Never used Tobacco Smoked in Last 30 Days: No Use of substances other than those prescribed or required for medical reasons: No Advance Directives: No Advance Directives Information Provided: No Do you have a plan to hurt others: No Plan Patient : No Physical Exam ED Vital Signs: Vital Signs - 24 hr 12/21/23 10:12 12/21/23 11:05 12/21/23 12:01 Temperature 99.0 F 99.4 F Pulse Rate 106 H 81 85 Respiratory Rate 20 26 H 30 H Blood Pressure 118/74 131/78 155/103 H Pulse Oximetry 97 98 98 Oxygen Delivery Method Room Air Room Air Room Air BMI result Body Mass Index 28.7 Patient tachycardic. Appearance: Alert.? Oriented X3.? No acute distress.? Head: Normocephalic, atraumatic, no step-offs or deformities Eyes: Pupils equal, round and reactive to light.? ENT: Pharynx normal.? Neck: Normal inspection.? Neck supple.? CVS: Normal heart rate and rhythm.? Pulses normal.? Respiratory: No respiratory distress.? Breath sounds normal.? Abdomen: Soft and diffuse discomfort on palpation.? Skin: Skin warm and dry.? Normal skin color.? Normal skin turgor.? Extremities: No lower extremity edema.? No calf ttp. 5/5 strength to bilateral upper and lower extremities Neuro: Oriented X 3.? No motor deficit.? No sensory deficit. CN 2-12 intact Course Reevaluation(s) Reevaluation #1: Patient now reports substernal chest ?burning?, EKG and troponin ordered as well. Time: 10:49 Reevaluation #2: CBC with leukocytosis and neutrophil predominance. Chemistry with low potassium likely secondary to poor p.o. intake/GI losses. Normal magnesium. Troponin negative, EKG nonischemic. Normal lipase. UA with evidence of infection, 4+ bacteria, leukocyte esterases, nitrates. Patient susceptible to ceftriaxone on previous culture that grew E coli, IV ceftriaxone was ordered due to this reason. CT scan with chronic findings however acute pyelonephritis is noted. Plan is hospital admission. Time: 12:42 Medications Administered Discontinued Medications Generic Name Dose Route Start Last Admin Trade Name Andreq PRN Reason Stop Dose Admin Ceftriaxone Sodium 1 gm/ 50 mls @ 100 mls/hr 12/21/23 10:35 12/21/23 11:50 Sodium Chloride IV 12/21/23 11:04 Infused ONCE ONE Infusion Sodium Chloride 2,136 mls @ 2,136 mls/hr 12/21/23 10:35 12/21/23 11:02 Ns 30 ml/kg infuse over 1 hr (2136 ml) 12/21/23 11:34 2,136 mls/hr IV Administration .Q1H STA Iohexol 100 ml 12/21/23 11:48 12/21/23 11:48 Iohexol 350 Mg/Ml 100 Ml Infus..Btl IV 12/21/23 11:49 85 ml ONCE ONE Administration Potassium Chloride 40 meq 12/21/23 11:19 12/21/23 12:08 Potassium Chloride Packet 20 Meq Packet PO 12/21/23 11:20 40 meq ONCE ONE Administration Medical Decision Making Medical Decision Making [facility] Narrative: 63-year-old female presents with fatigue, malaise, myalgias, abdominal pain, urinary frequency ongoing for the past few weeks. Patient very poor historian. Upon chart review it appears as though patient tested positive for C diff on 11/30/2023, patient did complete treatment with p.o. vanco which she states she just completed yesterday. Patient had a CT of the abdomen on 11/29/2023 with no acute findings. Physical exam today diffuse abdominal tenderness. Slight tachycardia on initial vitals not on exam. Patient nontoxic appearing History and physical exam concerning for UTI versus pyelonephritis versus C diff colitis. Unlikely acute abdomen, pancreatitis, cholecystitis, diverticulitis, appendicitis. Will rule out metabolic derangements/dehydration. Will also rule out urinary retention. No signs of cauda equina or cord compression. Plan labs, imaging, urine, viral tests. Differential Diagnosis Differential Diagnoses: The differential diagnosis associated with the presentation includes History and physical exam concerning for UTI versus pyelonephritis versus C diff colitis. Unlikely acute abdomen, pancreatitis, cholecystitis, diverticulitis, appendicitis. Will rule out metabolic derangements/dehydration. Will also rule out urinary retention. No signs of cauda equina or cord compression. Admission/Observation Consideration of admission/observation: Escalation of care including admission/observation considered possible Lab Data MDM Lab Attestation statement: I reviewed the patient's lab results. 12/21/23 10:51 12/21/23 10:51 Labs: Lab Results 12/21/23 12/21/23 Range/Units 10:51 10:56 WBC 14.5 H (4.8-10.8) X10*3/uL RBC 5.05 (4.20-5.50) X10*6/uL Hgb 13.1 (12.0-16.0) g/dl Hct 40.3 (37.0-47.0) % MCV 79.8 L (80.0-98.0) fL MCH 25.9 L (27.0-33.0) pg MCHC 32.5 (31.0-35.0) g/dl RDW 14.6 (11.0-16.0) % Plt Count 289 (160-400) X10*3/uL MPV 10.0 (9.4-12.3) fL Immature Gran % (Auto) 0.4 (0.0-0.4) % Neut % (Auto) 74.5 H (45-73) % Lymph % (Auto) 15.6 L (20-40) % [place] % (Auto) 8.6 (2-11) % Eos % (Auto) 0.4 (0-4) % Baso % (Auto) 0.5 (0-2) % Lymph # (Auto) 2.3 (1.2-4.9) X10*3/uL [place] # (Auto) 1.2 (0.1-1.2) X10*3/uL Eos # (Auto) 0.1 (0.0-0.4) X10*3/uL Baso # (Auto) 0.1 (0.0-0.2) X10*3/uL Abs Immat Gran (auto) 0.06 H (0.00-0.03) X10*3/uL Absolute Neuts (auto) 10.8 H (2.0-8.3) x10*3/uL Absolute Nucleated RBC 0.000 (0.0-0.012) X10*3/uL Nucleated RBC % (auto) 0.0 (0.0-0.2) /100WBC Sodium 139 (135-145) mmol/L Potassium 2.9 L* (3.3-5.1) mmol/L Chloride 100 (96-108) mmol/L Carbon Dioxide 31 H (22-29) mmol/L Anion Gap 11 L (12-20) BUN 15 (9-16) mg/dL Creatinine 0.79 (0.5-1.4) mg/dL Estim Creat Clear Calc 67.3 Estimated GFR > 60 Random Glucose 124 H (60-115) mg/dL Lactic Acid 1.1 (0.5-2.0) mmol/L Calcium 10.1 (8.4-10.2) mg/dL Magnesium 2.2 (1.6-2.6) mg/dL Total Bilirubin 0.8 (0.0-1.0) mg/dL Direct Bilirubin 0.2 (0.0-0.5) mg/dL AST 20 (5-31) U/L ALT 14 (0-31) U/L Alkaline Phosphatase 95 (39-117) U/L Troponin I High Sens < 2.7 (<3.5-17.0) ng/L Total Protein 7.5 (6.5-8.0) g/dL Albumin 4.0 (3.5-5.0) g/dL Lipase 18 (8-78) U/L Urine Color Dark Yellow Urine Appearance Clear Urine pH 7.5 (5.0-9.0) Ur Specific [place] 1.020 (1.005-1.025) Urine Protein Trace (Neg-Trace) mg/dL Urine Glucose (UA) Negative (Negative) mg/dL Urine Ketones Negative (Negative) mg/dL Urine Blood Negative (Negative) Urine Nitrite Positive H (Negative) Ur Leukocyte Esterase Trace H (Negative) Urine RBC 0-2 (0-2) /HPF Urine WBC 6-10 H (0-5) /HPF Ur Squamous Epith Cells 11-20 (0-2) /HPF Urine Bacteria 4+ (None Seen) Hyaline Casts 0-2 (0-2) /LPF Influenza Type A (PCR) NEGATIVE (Negative) Influenza Type B (PCR) NEGATIVE (Negative) RSV RNA Qual (PCR) NEGATIVE (Negative) SARS-CoV-2 RNA (RT-PCR) NEGATIVE (Negative) Independent Interpretation I performed an independent interpretation of an: CT Scan Radiology Impression Discussion of test interpretation with radiology: I have reviewed the radiologist's reading. Critical Care Time Critical Care Time Critical Care Time: Yes Total Critical Care Time: 35 Attestation: I attest to this time spent taking care of the patient, obtaining history, physical, reviewing labs, imaging, speaking to my attending, specialist or hospitalist. Discharge Plan Discharge Clinical Impression: Pyelonephritis, Recurrent UTI, Abdominal pain, Diarrhea, Hypokalemia Patient Disposition: Admitted As Inpatient Prescriptions: No Action cefuroxime axetil 250 mg tablet 250 mg PO BID 7 Days Qty: 14 0RF vancomycin 125 mg capsule 125 mg PO QID pyridostigmine bromide 60 mg tablet 60 mg PO TID azathioprine 50 mg tablet 50 mg PO TID chlorthalidone 25 mg tablet 25 mg PO DAILY estradiol 0.01 % (0.1 mg/gram) cream See Rx Instructions .Route 3XW 30 Days Qty: 42.5 2RF Rx Instructions: pea-sized to urethra 3 times a week sulfamethoxazole-trimethoprim [Bactrim] 400-80 mg tablet 1 tab PO BEDTIME 90 Days Qty: 90 0RF Print Language: Arabic
--- NOTE | 2023-12-21 10:48 | ECG_ITS ---
Test Reason : CHEST BURNING Blood Pressure : / mmHG Vent. Rate : 080 BPM Atrial Rate : 080 BPM P-R Int : 120 ms QRS Dur : 078 ms QT Int : 360 ms P-R-T Axes : 051 043 012 degrees QTc Int : 415 ms Normal sinus rhythm Normal ECG When compared with ECG of 18-SEP-2019 15:33, QT has shortened Referred By: Bradley De La Cruz Electronically Signed By:Isaiah Real
[2023-12-21 10:56] LABS: MANUAL DIFF FLAG NO
[2023-12-21 10:58] LABS: Basophils Absolute Auto 0.1 X10*3/uL (0.0-0.2); Basophils Percent Auto 0.5 % (0-2); Eosinophils Absolute Auto 0.1 X10*3/uL (0.0-0.4); Eosinophils Percent Auto 0.4 % (0-4); Hematocrit 40.3 % (37.0-47.0); Hemoglobin 13.1 g/dl (12.0-16.0); Imm Gran Abs Auto 0.06 X10*3/uL (0.00-0.03); Imm Gran Pct Auto 0.4 % (0.0-0.4); Lymphocytes Absolute Auto 2.3 X10*3/uL (1.2-4.9); Lymphocytes Percent Auto 15.6 % (20-40); Mean Corpuscular HGB Conc 32.5 g/dl (31.0-35.0); Mean Corpuscular Hemoglobin 25.9 pg (27.0-33.0); Mean Corpuscular Volume 79.8 fL (80.0-98.0); Monocytes Absolute Auto 1.2 X10*3/uL (0.1-1.2); Monocytes Percent Auto 8.6 % (2-11); Neutrophils Absolute Auto 10.8 x10*3/uL (2.0-8.3); Neutrophils Percent Auto 74.5 % (45-73); Platelet Count 289 X10*3/uL (160-400); Red Blood Count 5.05 X10*6/uL (4.20-5.50); Red Cell Distribution Width 14.6 % (11.0-16.0); White Blood Count 14.5 X10*3/uL (4.8-10.8)
[2023-12-21] MEDS: SODIUM CHLORIDE 2136 ML IV (11:02)
[2023-12-21] MEDS: cefTRIAXone sodium 1 GM in 0.9 % Sodium Chloride 50 ML IV (11:02)
[2023-12-21 11:03] LABS: Appearance Urine Clear; Color Urine Dark Yellow; Glucose Urine UA Negative (Negative); Leukocyte Esterase Urine Trace (Negative); Nitrite Urine Positive (Negative); PH 7.5 (5.0-9.0); UMIC TRIGGER UACC YES; Urine Blood Negative (Negative); Urine Ketones Negative (Negative); Urine Protein Trace mg/dL (Neg-Trace)
[2023-12-21 11:08] LABS: Lactic Acid 1.1 mmol/L (0.5-2.0)
[2023-12-21 11:20] LABS: Alanine Aminotransferase 14 U/L (0-31); Alkaline Phosphatase 95 U/L (39-117); Anion Gap 11 (12-20); Aspartate Amino Transferase 20 U/L (5-31); Bacteria Urine 4+ (None Seen); Bilirubin Direct 0.2 mg/dL (0.0-0.5); Bilirubin Total 0.8 mg/dL (0.0-1.0); Blood Urea Nitrogen 15 mg/dL (9-16); Calcium 10.1 mg/dL (8.4-10.2); Carbon Dioxide 31 mmol/L (22-29); Chloride 100 mmol/L (96-108); Creatinine Clr Calc Pharmacy 67.3; Estimated Glomerular Filt Rate > 60; Glucose Random 124 mg/dL (60-115); Hyaline Casts Urine 0-2 /LPF (0-2); Lipase 18 U/L (8-78); Potassium 2.9 mmol/L (3.3-5.1); RBC Urine 0-2 /HPF (0-2); Sodium 139 mmol/L (135-145); Total Protein 7.5 g/dL (6.5-8.0); UACC Culture Trigger YES
[2023-12-21 11:27] LABS: Troponin-I High Sensitivity < 2.7 ng/L (<3.5-17.0)
[2023-12-21 11:39] LABS: Magnesium 2.2 mg/dL (1.6-2.6)
[2023-12-21] MEDS: iohexoL 350 MG/ML 100 ML INFUS..BTL IV (11:48)
[2023-12-21 12:04] LABS: Influenza A PCR NEGATIVE (Negative); Influenza B PCR NEGATIVE (Negative); Resp Syncy Virus RNA Qual PCR NEGATIVE (Negative); SARS COV2 PCR INHOUSE NEGATIVE (Negative)
[2023-12-21] MEDS: Potassium Chloride Packet 20 MEQ PACKET 40 MEQ PO (12:08)
--- NOTE | 2023-12-21 13:03 | PHA.MEDREC ---
Pharmacy Consult ? Medication Reconciliation Pharmacy has completed the medication reconciliation. Patients daughter was there to translate for me
--- NOTE | 2023-12-21 14:32 | PM.IMHP ---
History of Present Illness Date of Service: 12/21/23 Chief Complaint: flank pain, chills, dysuria The patient is a 63-year-old female with a past medical history of myasthenia gravis, hypertension, recurrent UTIs who presents to [facility] ED with complaints of right flank pain, chills and dysuria which began on the day prior to admission. The patient has been treated, from what she recalls, for UTIs at least 3 times in the last 1 year, with the most recent last month. She reports that she developed C diff after her most recent treatment and was treated with a 10 day course of vancomycin. In the emergency room her workup showed leukocytosis of 14 with a left shift, UA which was positive for nitrites and WBCs with 4+ bacteria. Her CT scan showed left-sided pyelo, see full report below. Given her history of recurrent admissions, as well as significant leukocytosis, as well as being on treatment for myasthenia gravis the patient will now be admitted for further care. Review of Systems Review of Systems: Negative except HPI/interval history. PENDING SALE TO [facility] Medical History (Updated 12/21/23 @ 12:43 by EVANGELIST Nunez) Osteoporosis Family History Mother Diabetes Hyperlipidemia HTN (hypertension) Myasthenia gravis Father Diabetes HTN (hypertension) Surgical History Hx of hysterectomy Hx of bilateral oophorectomy Social History Household Members: Spouse and Children Alcohol intake: never Patient Tobacco Use Status: Never used Tobacco Meds Allergies Allergy/AdvReac Type Severity Reaction Status Date / Time penicillin V Allergy Unknown Unknown Verified 12/21/23 10:16 Penicillins [PENICILLINS] Allergy Unknown UNKNOWN - Verified 12/21/23 10:16 RXN CHILD Active Medications: Current Medications Acetaminophen (Acetaminophen 325 Mg Tablet) 650 mg PO Q6H PRN PRN Reason: Pain, Mild (Pain Scale 1-3), fever or headache Calcium Carbonate (Calcium Carbonate 750 Mg Tab.Chew) 750 mg PO Q4H PRN PRN Reason: Heartburn Enoxaparin Sodium (Enoxaparin Sodium 40 Mg/0.4 Ml Syringe) 40 mg SUBCUT Q24H LORE Ceftriaxone Sodium 1 gm/ (Sodium Chloride) 50 mls @ 100 mls/hr IV Q24H LORE Magnesium Hydroxide (Milk Of Magnesia 30 Ml Oral.Susp) 30 ml PO DAILY PRN PRN Reason: Constipation Melatonin (Melatonin 3 Mg Tablet) 6 mg PO BEDTIME PRN PRN Reason: Insomnia Sodium Chloride (0.9 % Sodium Chloride Flush 3 Ml Syringe) 3 ml IVFLUSH QSHIFT LORE Home Medications ?Medication ?Instructions ?Recorded ?Confirmed ?Last Taken ?Type azathioprine 50 mg tablet 50 mg PO TID 12/12/23 12/21/23 12/21/23 History chlorthalidone 25 mg tablet 25 mg PO DAILY 12/12/23 12/21/23 12/21/23 History pyridostigmine bromide 60 mg tablet 60 mg PO TID 12/12/23 12/21/23 12/21/23 History vancomycin 125 mg capsule 125 mg PO QID 12/12/23 12/21/23 Unknown History calcium carbonate 500 mg PO DAILY 12/21/23 12/21/23 Unknown History cholecalciferol (vitamin D3) 25 25 mcg PO DAILY 12/21/23 12/21/23 Unknown History mcg (1,000 unit) capsule (Vitamin D3) Physical Exam Vital Signs and Narrative: Vital Signs: Last Vital Signs Temp 97.9 F 12/21/23 14:23 Pulse 93 12/21/23 14:23 Resp 17 12/21/23 14:23 BP 121/66 12/21/23 14:23 Pulse Ox 97 12/21/23 14:23 O2 Del Method Room Air 12/21/23 14:23 BMI result Body Mass Index 28.7 Const: Other: General - ill-appearing Cardiovascular - regular rate and rhythm, S1-S2 Lungs - normal respiratory effort, clear to auscultation bilaterally, no wheezing Abdomen - soft, nontender, no rebound or guarding; left CVA tenderness Extremities - no edema bilaterally Neuro - awake and alert, no focal deficits Results Labs 12/21/23 10:51 12/21/23 10:51 Labs: Laboratory Results - last 24 hr 12/21/23 12/21/23 10:51 10:56 MCV 79.8 L MCH 25.9 L MCHC 32.5 RDW 14.6 Plt Count 289 MPV 10.0 Immature Gran % (Auto) 0.4 Neut % (Auto) 74.5 H Lymph % (Auto) 15.6 L [place] % (Auto) 8.6 Eos % (Auto) 0.4 Baso % (Auto) 0.5 Lymph # (Auto) 2.3 [place] # (Auto) 1.2 Eos # (Auto) 0.1 Baso # (Auto) 0.1 Abs Immat Gran (auto) 0.06 H Absolute Neuts (auto) 10.8 H Absolute Nucleated RBC 0.000 Nucleated RBC % (auto) 0.0 Anion Gap 11 L Estim Creat Clear Calc 67.3 Estimated GFR > 60 Random Glucose 124 H Lactic Acid 1.1 Calcium 10.1 Magnesium 2.2 Total Bilirubin 0.8 Direct Bilirubin 0.2 AST 20 ALT 14 Alkaline Phosphatase 95 Troponin I High Sens < 2.7 Total Protein 7.5 Albumin 4.0 Lipase 18 Urine Color Dark Yellow Urine Appearance Clear Urine pH 7.5 Ur Specific [place] 1.020 Urine Protein Trace Urine Glucose (UA) Negative Urine Ketones Negative Urine Blood Negative Urine Nitrite Positive H Ur Leukocyte Esterase Trace H Urine RBC 0-2 Urine WBC 6-10 H Ur Squamous Epith Cells 11-20 Urine Bacteria 4+ Hyaline Casts 0-2 Influenza Type A (PCR) NEGATIVE Influenza Type B (PCR) NEGATIVE RSV RNA Qual (PCR) NEGATIVE SARS-CoV-2 RNA (RT-PCR) NEGATIVE Imaging Radiologist's Impressions: Impressions Abdomen/Pelvis CT 12/21/23 11:41 IMPRESSION: 1. Unchanged Irregular cortical defects are seen in superior left renal pole, compatible with previous pyelonephritis, renal infarct or obstructive uropathy. 2. Interval development of Multiple poorly demarcated hypoenhancing areas in the left upper and mid renal cortex. Findings are suspicious for pyelonephritis. 3. Unchanged Medium-sized left periumbilical hernia containing mesenteric fat. 4. Unchanged Mild posterior L5-S1 disc protrusion. 5. Recurrent Mild fecal distention of ascending and transverse colon. Fleischner guidelines were followed. Assessment and Plan (1) Pyelonephritis: Status: Acute Plan 63-year-old female with a past medical history of myasthenia gravis, osteoporosis, hypertension and recurrent UTIs who presents to the hospital with a 1 day history of fevers/chills, flank pain and dysuria. Her workup in the emergency room reveals left-sided pyelonephritis and sepsis. 1. Sepsis due to left-sided pyelonephritis No severe features Meets sepsis criteria with tachycardia, tachypnea and leukocytosis Sepsis focused exam completed IV ceftriaxone and follow up cultures Has seen Urology as an outpatient with the recommendations for: Estrace cream, suppressive antibiotics and possible cysto. Will need outpatient follow-up with them. 2. Hypokalemia Likely due to poor oral intake and recent C diff diarrhea Completed in the ED, will check tomorrow morning 3. Myasthenia gravis Continue her baseline meds 4. History of hypertension On chlorthalidone at home, we will hold today and re-evaluate tomorrow Full code DVT prophylaxis, Lovenox Patient with sepsis and pyelonephritis therefore expected to require at least 48 hours of IV antibiotics and hence will be admitted as inpatient. Quality Stroke Does the patient have a stroke diagnosis?: No VTE Prior VTE?: No VTE Risk Level:: Medical - moderate - high VTE Device Contraindication: N/A - Device Ordered VTE Drug Contraindication: N/A - Med Ordered
[2023-12-21] MEDS: Acetaminophen 325 MG TABLET 650 MG PO (16:50)
[2023-12-21] MEDS: Enoxaparin Sodium 40 MG/0.4 ML SYRINGE SUBCUT (16:56)
[2023-12-21] MEDS: 0.9 % Sodium Chloride Flush 3 ML SYRINGE IVFLUSH ×2 (16:59→23:36)
[2023-12-21] MEDS: pyRIDostigmine bromide 60 MG TABLET PO (21:23)
[2023-12-22] VITALS (9 sets, daily range): BP systolic 110–123; BP diastolic 61–71; PULSE 72–98; RESP 14–18; TEMP 36–36.5; O2SAT 96–97
[2023-12-22 01:17] LABS: Troponin-I High Sensitivity < 2.7 ng/L (<3.5-17.0)
[2023-12-22 01:44] LABS: Anion Gap 10 (12-20); Blood Urea Nitrogen 12 mg/dL (9-16); Calcium 9.5 mg/dL (8.4-10.2); Carbon Dioxide 29 mmol/L (22-29); Chloride 105 mmol/L (96-108); Creatinine Clr Calc Pharmacy 67.3; Estimated Glomerular Filt Rate > 60; Glucose Random 143 mg/dL (60-115); Magnesium 2.3 mg/dL (1.6-2.6); Potassium 2.9 mmol/L (3.3-5.1); Sodium 141 mmol/L (135-145)
--- NOTE | 2023-12-22 02:04 | PC.NURSE ---
Patient c/o heart palpitations aprox [id number], also mild dizziness. notified via [email or web address]. MD replied to place patient on tele, ECG (which was WNL) labs. VSS. Potassium came back critical low 2.9, [facility]
[2023-12-22 06:12] LABS: Hematocrit 38.3 % (37.0-47.0); Hemoglobin 12.2 g/dl (12.0-16.0); Mean Corpuscular HGB Conc 31.9 g/dl (31.0-35.0); Mean Corpuscular Volume 81.7 fL (80.0-98.0); Mean Platelet Volume 10.7 fL (9.4-12.3); Platelet Count 259 X10*3/uL (160-400); Red Blood Count 4.69 X10*6/uL (4.20-5.50); Red Cell Distribution Width 14.6 % (11.0-16.0); White Blood Count 12.7 X10*3/uL (4.8-10.8)
[2023-12-22 06:48] LABS: Anion Gap 10 (12-20); Blood Urea Nitrogen 11 mg/dL (9-16); Calcium 9.8 mg/dL (8.4-10.2); Carbon Dioxide 30 mmol/L (22-29); Chloride 104 mmol/L (96-108); Creatinine Clr Calc Pharmacy 68.2; Estimated Glomerular Filt Rate > 60; Glucose Random 118 mg/dL (60-115); Potassium 3.4 mmol/L (3.3-5.1); Sodium 141 mmol/L (135-145)
[2023-12-22] MEDS: 0.9 % Sodium Chloride Flush 3 ML SYRINGE IVFLUSH ×3 (10:09→23:55)
[2023-12-22] MEDS: pyRIDostigmine bromide 60 MG TABLET PO ×3 (10:11→20:48)
[2023-12-22] MEDS: Cholecalciferol (Vitamin D3) 25 MCG TABLET PO (10:11)
[2023-12-22] MEDS: Calcium Oyster Shell Elemental 500 MG TABLET PO (10:12)
[2023-12-22] MEDS: cefTRIAXone sodium 1 GM in 0.9 % Sodium Chloride 50 ML IV (10:18)
--- NOTE | 2023-12-22 10:48 | P.PNIM_ITS ---
Subjective Subjective Date of Service: 12/22/23 Interval History: seen and examined this AM family bedside and translates improved flank pain and dysuria overnight events reviewed -- question related to anxiety Review of Systems Negative except HPI/interval history. Physical Exam 2 Vital Signs: Vital Signs: Last Vital Signs Temp 97.4 F 12/22/23 07:20 Pulse 75 12/22/23 07:20 Resp 16 12/22/23 07:20 BP 123/64 12/22/23 07:20 Pulse Ox 97 12/22/23 07:20 O2 Del Method Room Air 12/22/23 07:20 BMI result Body Mass Index 28.7 Const: Other: General - no acute distress, appears comfortable Cardiovascular - regular rate and rhythm, S1-S2 Lungs - normal respiratory effort, clear to auscultation bilaterally, no wheezing Abdomen - soft, nontender, no rebound or guarding; improving L CVA tenderness Extremities - no edema bilaterally Neuro - awake and alert, no focal deficits Objective Data Active Medications Acetaminophen (Acetaminophen 325 Mg Tablet) 650 mg PO Q6H PRN PRN Reason: Pain, Mild (Pain Scale 1-3), fever or headache Last Admin: 12/21/23 16:50 Dose: 650 mg Documented By: KEN Azathioprine (Azathioprine 50 Mg Tablet) 50 mg PO TID [facility] Calcium Carbonate (Calcium Carbonate 750 Mg Tab.Chew) 750 mg PO Q4H PRN PRN Reason: Heartburn Calcium Carbonate (Calcium Oyster Shell Elemental 500 Mg Tablet) 500 mg PO DAILY [facility] Last Admin: 12/22/23 10:12 Dose: 500 mg Documented By: RANDY Enoxaparin Sodium (Enoxaparin Sodium 40 Mg/0.4 Ml Syringe) 40 mg SUBCUT Q24H [facility] Last Admin: 12/21/23 16:56 Dose: 40 mg Documented By: KEN Ceftriaxone Sodium 1 gm/ (Sodium Chloride) 50 mls @ 100 mls/hr IV Q24H [facility] Last Admin: 12/22/23 10:18 Dose: 100 mls/hr Documented By: RANDY Magnesium Hydroxide (Milk Of Magnesia 30 Ml Oral.Susp) 30 ml PO DAILY PRN PRN Reason: Constipation Melatonin (Melatonin 3 Mg Tablet) 6 mg PO BEDTIME PRN PRN Reason: Insomnia Oxycodone HCl (Oxycodone Hcl Immed Release 5 Mg Tablet) 5 mg PO Q6H PRN PRN Reason: Pain, Moderate(Pain Scale 4-6) Pyridostigmine [place] (Pyridostigmine [place] 60 Mg Tablet) 60 mg PO TID [facility] Last Admin: 12/22/23 10:11 Dose: 60 mg Documented By: RANDY Sodium Chloride (0.9 % Sodium Chloride Flush 3 Ml Syringe) 3 ml IVFLUSH QSHIFT [facility] Last Admin: 12/22/23 10:09 Dose: 3 ml Documented By: RANDY Vitamin D (Cholecalciferol (Vitamin D3) 25 Mcg Tablet) 25 mcg PO DAILY [facility] Last Admin: 12/22/23 10:11 Dose: 25 mcg Documented By: RANDY Labs 12/22/23 05:32 12/22/23 05:32 Labs: Laboratory Results - last 24 hr 12/21/23 12/21/23 12/22/23 10:51 10:56 00:16 MCV 79.8 L MCH 25.9 L MCHC 32.5 RDW 14.6 Plt Count 289 MPV 10.0 Immature Gran % (Auto) 0.4 Neut % (Auto) 74.5 H Lymph % (Auto) 15.6 L Bent % (Auto) 8.6 Eos % (Auto) 0.4 Baso % (Auto) 0.5 Lymph # (Auto) 2.3 Bent # (Auto) 1.2 Eos # (Auto) 0.1 Baso # (Auto) 0.1 Abs Immat Gran (auto) 0.06 H Absolute Neuts (auto) 10.8 H Absolute Nucleated RBC 0.000 Nucleated RBC % (auto) 0.0 Hold Purple Top Anion Gap 11 L Estim Creat Clear Calc 67.3 Estimated GFR > 60 Random Glucose 124 H Lactic Acid 1.1 Calcium 10.1 Magnesium 2.2 Total Bilirubin 0.8 Direct Bilirubin 0.2 AST 20 ALT 14 Alkaline Phosphatase 95 Troponin I High Sens < 2.7 < 2.7 Total Protein 7.5 Albumin 4.0 Lipase 18 Urine Color Dark Yellow Urine Appearance Clear Urine pH 7.5 Ur Specific [place] 1.020 Urine Protein Trace Urine Glucose (UA) Negative Urine Ketones Negative Urine Blood Negative Urine Nitrite Positive H Ur Leukocyte Esterase Trace H Urine RBC 0-2 Urine WBC 6-10 H Ur Squamous Epith Cells 11-20 Urine Bacteria 4+ Hyaline Casts 0-2 Influenza Type A (PCR) NEGATIVE Influenza Type B (PCR) NEGATIVE RSV RNA Qual (PCR) NEGATIVE SARS-CoV-2 RNA (RT-PCR) NEGATIVE 12/22/23 12/22/23 12/22/23 00:17 00:30 05:32 MCV 81.7 MCH 26.0 L MCHC 31.9 RDW 14.6 Plt Count 259 MPV 10.7 Immature Gran % (Auto) Neut % (Auto) Lymph % (Auto) Bent % (Auto) Eos % (Auto) Baso % (Auto) Lymph # (Auto) Bent # (Auto) Eos # (Auto) Baso # (Auto) Abs Immat Gran (auto) Absolute Neuts (auto) Absolute Nucleated RBC 0.000 Nucleated RBC % (auto) 0.0 Hold Purple Top SEE NOTE Anion Gap 10 L 10 L Estim Creat Clear Calc 67.3 68.2 Estimated GFR > 60 > 60 Random Glucose 143 H 118 H Lactic Acid Calcium 9.5 9.8 Magnesium 2.3 Total Bilirubin Direct Bilirubin AST ALT Alkaline Phosphatase Troponin I High Sens Total Protein Albumin Lipase Urine Color Urine Appearance Urine pH Ur Specific [place] Urine Protein Urine Glucose (UA) Urine Ketones Urine Blood Urine Nitrite Ur Leukocyte Esterase Urine RBC Urine WBC Ur Squamous Epith Cells Urine Bacteria Hyaline Casts Influenza Type A (PCR) Influenza Type B (PCR) RSV RNA Qual (PCR) SARS-CoV-2 RNA (RT-PCR) Assessment and Plan (1) Pyelonephritis: Status: Acute Plan 63-year-old female with a past medical history of myasthenia gravis, osteoporosis, hypertension and recurrent UTIs who presents to the hospital with a 1 day history of fevers/chills, flank pain and dysuria. Her workup in the emergency room reveals left-sided pyelonephritis and sepsis. 1. Sepsis due to left-sided pyelonephritis sepsis resolving f/u cultures -- negative to date continue rocephin 2. Hypokalemia normalized 3. Myasthenia gravis Continue her baseline meds 4. History of hypertension BP stable without meds, monitor fo rnow Full code DVT prophylaxis, Lovenox Quality Stroke Does the patient have a stroke diagnosis?: No VTE Prior VTE?: No VTE Risk Level:: Medical - moderate - high VTE Device Contraindication: N/A - Device Ordered VTE Drug Contraindication: N/A - Med Ordered
[2023-12-22] MEDS: azaTHIOprine 50 MG TABLET PO ×2 (13:24→20:48)
[2023-12-22] MEDS: Acetaminophen 325 MG TABLET 650 MG PO (13:27)
--- NOTE | 2023-12-22 14:37 | PC.NURSE ---
Patient took shower ,[facility] tech reported HR 135,RN went into the room to check patient,pt standing up combing her hair,assisted back to bed,pt states she did feel slightly dizzy,no chest pain,reported some SOB,while resting HR 94,BP 117/69 Sat 96% on RA,Dr. Baugh notified,patient resting in bed at present comfortable
[2023-12-22] MEDS: Enoxaparin Sodium 40 MG/0.4 ML SYRINGE SUBCUT (15:23)
--- NOTE | 2023-12-22 15:57 | MHC.CM.PN ---
PATIENT REPORTS SHE LIVES IN A HOME W/ ADULT DAUGHTER. FUNCTIONALLY INDEPENDENT. PCP TOBIAS NAME NO HCP. CM PROVIDED EDUCATION AND OFFERED ASSISTANCE. PATIENT DECLINED. DP: GOAL IS HOME SELF CARE, DAUGHTER TO TRANSPORT. CM WILL CONTINUE TO FOLLOW.
[2023-12-22] MEDS: Calcium Carbonate 750 MG TAB.CHEW PO (20:55)
[2023-12-23] VITALS (7 sets, daily range): BP systolic 113–139; BP diastolic 61–88; PULSE 62–75; RESP 14–18; TEMP 36–36.6; O2SAT 94–99
[2023-12-23] MEDS: Acetaminophen 325 MG TABLET 650 MG PO (01:51)
[2023-12-23] MEDS: Calcium Carbonate 750 MG TAB.CHEW PO (01:53)
--- NOTE | 2023-12-23 01:57 | PC.NURSE ---
[facility] called floor approx 0145 due to patient's heart rate 137. Patient was up to the bathroom at the time, tachycardia seems to be related to ambulation. c/o dizziness, and bed alarm placed on due to this. Upon getting back to bed, heart rate returned to 60-70's. VSS. Daughter Lisset ([employer] from [facility]) came down to visit and assisted with interpreting for this [place] only patient. Pharmacy Clinical Coordinator Anila at bedside and aware of heart rate. Patient was just medicated for nausea and headache. Patient stated that she has been having diarrhea.
[2023-12-23 08:05] LABS: Hematocrit 39.3 % (37.0-47.0); Hemoglobin 12.8 g/dl (12.0-16.0); Mean Corpuscular HGB Conc 32.6 g/dl (31.0-35.0); Mean Corpuscular Volume 79.9 fL (80.0-98.0); Mean Platelet Volume 10.1 fL (9.4-12.3); Platelet Count 291 X10*3/uL (160-400); Red Blood Count 4.92 X10*6/uL (4.20-5.50); Red Cell Distribution Width 14.3 % (11.0-16.0); White Blood Count 10.7 X10*3/uL (4.8-10.8)
[2023-12-23 08:22] LABS: Anion Gap 12 (12-20); Blood Urea Nitrogen 13 mg/dL (9-16); Calcium 10.2 mg/dL (8.4-10.2); Carbon Dioxide 27 mmol/L (22-29); Chloride 106 mmol/L (96-108); Estimated Glomerular Filt Rate > 60; Glucose Random 104 mg/dL (60-115); Potassium 3.4 mmol/L (3.3-5.1); Sodium 142 mmol/L (135-145)
[2023-12-23] MEDS: Cholecalciferol (Vitamin D3) 25 MCG TABLET PO (08:39)
[2023-12-23] MEDS: azaTHIOprine 50 MG TABLET PO ×2 (08:39→14:06)
[2023-12-23] MEDS: pyRIDostigmine bromide 60 MG TABLET PO ×2 (08:39→14:06)
[2023-12-23] MEDS: Calcium Oyster Shell Elemental 500 MG TABLET PO (08:39)
[2023-12-23] MEDS: 0.9 % Sodium Chloride Flush 3 ML SYRINGE IVFLUSH (08:40)
--- NOTE | 2023-12-23 10:09 | P.PNIM_ITS ---
Subjective Subjective Date of Service: 12/23/23 Interval History: seen and examined this AM feeling weak overnight and yesterday afternoon became tachycardic with ambulation in the room this AM reports feeling fatigued and worse compared to yesterday Physical Exam 2 Vital Signs: Vital Signs: Last Vital Signs Temp 97.8 F 12/23/23 07:03 Pulse 73 12/23/23 07:31 Resp 14 12/23/23 07:03 BP 127/77 12/23/23 07:31 Pulse Ox 99 12/23/23 07:03 O2 Del Method Room Air 12/23/23 07:03 BMI result Body Mass Index 28.7 Const: Other: General - no acute distress, weak appearing Cardiovascular - regular rate and rhythm, S1-S2 Lungs - normal respiratory effort, clear to auscultation bilaterally, no wheezing Abdomen - soft, nontender, no rebound or guarding; improving L CVA tenderness Extremities - no edema bilaterally Neuro - awake and alert, no focal deficits Objective Data Active Medications Acetaminophen (Acetaminophen 325 Mg Tablet) 650 mg PO Q6H PRN PRN Reason: Pain, Mild (Pain Scale 1-3), fever or headache Last Admin: 12/23/23 01:51 Dose: 650 mg Documented By: HANK Azathioprine (Azathioprine 50 Mg Tablet) 50 mg PO TID [facility] Last Admin: 12/23/23 08:39 Dose: 50 mg Documented By: RANDY Calcium Carbonate (Calcium Carbonate 750 Mg Tab.Chew) 750 mg PO Q4H PRN PRN Reason: Heartburn Last Admin: 12/23/23 01:53 Dose: 750 mg Documented By: HANK Calcium Carbonate (Calcium Oyster Shell Elemental 500 Mg Tablet) 500 mg PO DAILY [facility] Last Admin: 12/23/23 08:39 Dose: 500 mg Documented By: RANDY Enoxaparin Sodium (Enoxaparin Sodium 40 Mg/0.4 Ml Syringe) 40 mg SUBCUT Q24H [facility] Last Admin: 12/22/23 15:23 Dose: 40 mg Documented By: RANDY Ceftriaxone Sodium 1 gm/ (Sodium Chloride) 50 mls @ 100 mls/hr IV Q24H [facility] Last Infusion: 12/22/23 10:52 Dose: Infused Documented By: RANDY Magnesium Hydroxide (Milk Of Magnesia 30 Ml Oral.Susp) 30 ml PO DAILY PRN PRN Reason: Constipation Melatonin (Melatonin 3 Mg Tablet) 6 mg PO BEDTIME PRN PRN Reason: Insomnia Oxycodone HCl (Oxycodone Hcl Immed Release 5 Mg Tablet) 5 mg PO Q6H PRN PRN Reason: Pain, Moderate(Pain Scale 4-6) Pyridostigmine [place] (Pyridostigmine [place] 60 Mg Tablet) 60 mg PO TID [facility] Last Admin: 12/23/23 08:39 Dose: 60 mg Documented By: RANDY Sodium Chloride (0.9 % Sodium Chloride Flush 3 Ml Syringe) 3 ml IVFLUSH QSHIFT [facility] Last Admin: 12/23/23 08:40 Dose: 3 ml Documented By: RANDY Vitamin D (Cholecalciferol (Vitamin D3) 25 Mcg Tablet) 25 mcg PO DAILY [facility] Last Admin: 12/23/23 08:39 Dose: 25 mcg Documented By: RANDY Labs 12/23/23 07:48 12/23/23 07:48 Labs: Laboratory Results - last 24 hr 12/23/23 07:48 MCV 79.9 L MCH 26.0 L MCHC 32.6 RDW 14.3 Plt Count 291 MPV 10.1 Absolute Nucleated RBC 0.000 Nucleated RBC % (auto) 0.0 Anion Gap 12 Estim Creat Clear Calc 70.0 Estimated GFR > 60 Random Glucose 104 Calcium 10.2 Microbiology Microbiology Results: Microbiology 12/21/23 Unknown Urine Culture - Final Urine clean catch - Clean Catch Midstream Escherichia coli 12/21/23 10:56 Blood Culture - Preliminary Blood - Venous No growth after 24 hours. 12/21/23 10:51 Blood Culture - Preliminary Blood - Venous No growth after 24 hours. Assessment and Plan (1) Pyelonephritis: Status: Acute Plan 63-year-old female with a past medical history of myasthenia gravis, osteoporosis, hypertension and recurrent UTIs who presents to the hospital with a 1 day history of fevers/chills, flank pain and dysuria. Her workup in the emergency room reveals left-sided pyelonephritis and sepsis. 1. Sepsis due to left-sided pyelonephritis sepsis resolved urine growing e. coli sensitive to cephalosporins continue rocpehin for now, ceftin x 10d upon discharge 2. Hypokalemia normalized 3. Myasthenia gravis weakness may be secondary to this as her meds were held on day # due to concern over sepsis/bacteremia. Have been restarted since 4. History of hypertension BP stable without meds, monitor for now 5. exertional tachycardia tele reviewed -- reveals intermittent sinus tachy orthostatic negative likely due to deconditioning Full code DVT prophylaxis, Lovenox will re-evaluate patient this afternoon; anticipate discharge in the next 24 hours Quality Stroke Does the patient have a stroke diagnosis?: No VTE Prior VTE?: No VTE Risk Level:: Medical - moderate - high VTE Device Contraindication: N/A - Device Ordered VTE Drug Contraindication: N/A - Med Ordered
[2023-12-23] MEDS: cefTRIAXone sodium 1 GM in 0.9 % Sodium Chloride 50 ML IV (11:21)
--- NOTE | 2023-12-23 13:53 | PM.DS ---
DS: Providers Provider Date of Service: 12/23/23 Date of admission: 12/21/23 14:23 Primary care physician: Kevin Scanlon MD DS: Diagnosis Discharge Diagnosis (1) Pyelonephritis: Status: Acute DS: Summary Hospital Course Hospital Course: HPI: The patient is a 63-year-old female with a past medical history of myasthenia gravis, hypertension, recurrent UTIs who presents to [facility] ED with complaints of right flank pain, chills and dysuria which began on the day prior to admission. The patient has been treated, from what she recalls, for UTIs at least 3 times in the last 1 year, with the most recent last month. She reports that she developed C diff after her most recent treatment and was treated with a 10 day course of vancomycin. In the emergency room her workup showed leukocytosis of 14 with a left shift, UA which was positive for nitrites and WBCs with 4+ bacteria. Her CT scan showed left-sided pyelo, see full report below. Given her history of recurrent admissions, as well as significant leukocytosis, as well as being on treatment for myasthenia gravis the patient will now be admitted for further care. Hospital course: Patient was admitted for sepsis due to left-sided pyelonephritis. She was initiated on IV ceftriaxone and given the appropriate fluids. Patient is urine culture grew E coli sensitive to cephalosporins. Her blood cultures are negative at the time of discharge. She is feeling better and will be discharged with 7 more days of cefuroxime 500 mg twice daily. The patient's hospital course was complicated by intermittent exertional tachycardia. Patient's tele monitor did not show any abnormal rhythms other than sinus tach. Patient had appropriate improvement in heart rate with rest. She has no evidence of anemia nor orthostasis. The likely cause of her exertional tachycardia is likely secondary to deconditioning. For her recurrent urinary tract infections, she is to continue medications prescribed by urologist. The patient and family also have been educated on the possibility of recurrent C diff given that she will be on antibiotics. Lastly, the patient's chlorthalidone was on hold due to initial electrolyte imbalances. During the hospitalization the patient's blood pressure has remained in the normal range without chlorthalidone. Given her presenting hypokalemia and normal blood pressures, have instructed the patient to discontinue this medicine for the time being. Time Attestation Discharge Coordination Time (in mins): 45 Quality: Safe Use of Opioids Does Pt have an Active Cancer Diagnosis on the Problem List?: No Quality: Stroke Does the patient have a stroke diagnosis?: No Physical Exam Vital Signs: Vital Signs: Last Vital Signs Temp 97.8 F 12/23/23 07:03 Pulse 73 12/23/23 07:31 Resp 14 12/23/23 07:03 BP 127/77 12/23/23 07:31 Pulse Ox 99 12/23/23 07:03 O2 Del Method Room Air 12/23/23 07:03 BMI result Body Mass Index 28.7 DS: Data Data Completed and Pending Labs on day of discharge: Laboratory Results - last 24 hr 12/23/23 07:48 WBC 10.7 RBC 4.92 Hgb 12.8 Hct 39.3 MCV 79.9 L MCH 26.0 L MCHC 32.6 RDW 14.3 Plt Count 291 MPV 10.1 Absolute Nucleated RBC 0.000 Nucleated RBC % (auto) 0.0 Sodium 142 Potassium 3.4 Chloride 106 Carbon Dioxide 27 Anion Gap 12 BUN 13 Creatinine 0.76 Estim Creat Clear Calc 70.0 Estimated GFR > 60 Random Glucose 104 Calcium 10.2 Preliminary micro results at discharge 12/21/23 10:56 Blood Culture - Preliminary Blood - Venous No growth after 48 hours. 12/21/23 10:51 Blood Culture - Preliminary Blood - Venous No growth after 48 hours. Discharge Plan Discharge Anticipated Discharge Date/Time: 12/23/23 13:42 Patient Disposition: Home, Self-Care Discharge Diagnosis: Pyelonephritis Referrals: Name,MD Kevin [Primary Care Provider] - 1 Week Discharge Medications: New cefuroxime axetil 500 mg tablet 500 mg PO Q12H Qty: 14 0RF Continued calcium carbonate 500 mg calcium (1,250 mg) Tablet 500 mg PO DAILY cholecalciferol (vitamin D3) [Vitamin D3] 25 mcg (1,000 unit) Capsule 25 mcg PO DAILY pyridostigmine bromide 60 mg tablet 60 mg PO TID azathioprine 50 mg tablet 50 mg PO TID estradiol 0.01 % (0.1 mg/gram) cream See Rx Instructions .Route 3XW 30 Days Qty: 42.5 2RF Rx Instructions: pea-sized to urethra 3 times a week Discontinued vancomycin 125 mg capsule 125 mg PO QID chlorthalidone 25 mg tablet 25 mg PO DAILY Diet: Advance to usual diet Activity on Discharge: As tolerated Stand Alone Forms: Patient Portal Discharge page Print Language: [place] Care Plan Goals: To stay healthy and out of the hospital. Health Concerns: Recurrent urinary tract infections Plan of Treatment: Complete 7 more days of antibiotics Take medications prescribed by the urologist Drink plenty of fluids. Cranberry juice may help. Assessment: See discharge summary
--- NOTE | 2023-12-23 15:12 | MHC.CM.PN ---
Patient is medically cleared for dc home self care via private transport.
== END 2023-12-23 16:07 | disposition home or self-care (01) | DRG 720 ==
LOC: HO.ED 12:43 → HO.EDOVER 14:34 → HO.S3 15:48
PROVIDERS: Internal Medicine; Physician Assistant; Admitting Provider Family Medicine; Emergency Provider Emergency Medicine; PCP Internal Medicine Geriatric Medicine; Visit Provider Family Medicine
DX: A41.9 Sepsis, unspecified organism (principal); G70.00 Myasthenia gravis without (acute) exacerbation; N12 Tubulo-interstitial nephritis, not specified as acute or chronic; B96.20 Unspecified Escherichia coli [E. coli] as the cause of diseases classified elsewhere; R00.0 Tachycardia, unspecified; I10 Essential (primary) hypertension; E87.6 Hypokalemia; Z20.822 Contact with and (suspected) exposure to COVID-19; Z87.440 Personal history of urinary (tract) infections; Z79.899 Other long term (current) drug therapy
CPT/HCPCS: 0241U; 36415; 74177; 80048; 80076; 81001; 81003; 83605; 83690; 83735; 84484; 85025; 85027; 87040; 87086; 87088; 87186; 93005; 99221; 99285; J0696; J1650; Q9967

== ENCOUNTER → 2023-12-21 10:48 | Outpatient (BNV) | payer MEDICAID, SELFPAY | PROVIDERS: Admitting Provider Family Medicine; Emergency Provider Emergency Medicine; PCP Internal Medicine Geriatric Medicine; Visit Provider Internal Medicine Cardiovascular Disease | DX: R07.89 Other chest pain (principal) | CPT/HCPCS: 93010 ==

== ENCOUNTER → 2023-12-21 14:23 | Outpatient (BNV) | payer MEDICAID, SELFPAY | PROVIDERS: Admitting Provider Family Medicine; Emergency Provider Emergency Medicine; PCP Internal Medicine Geriatric Medicine; Visit Provider Family Medicine | DX: N12 Tubulo-interstitial nephritis, not specified as acute or chronic (principal) | CPT/HCPCS: 99223; 99232; 99239 ==

== ENCOUNTER 2023-12-27 09:49 | Outpatient (REF) | payer MEDICAID, SELFPAY ==
[2023-12-27 11:20] LABS: MANUAL DIFF FLAG NO
[2023-12-27 11:29] LABS: Basophils Absolute Auto 0.1 X10*3/uL (0.0-0.2); Basophils Percent Auto 0.7 % (0-2); Eosinophils Absolute Auto 0.3 X10*3/uL (0.0-0.4); Eosinophils Percent Auto 2.2 % (0-4); Hematocrit 38.4 % (37.0-47.0); Imm Gran Abs Auto 0.11 X10*3/uL (0.00-0.03); Imm Gran Pct Auto 0.9 % (0.0-0.4); Lymphocytes Percent Auto 24.5 % (20-40); Mean Corpuscular HGB Conc 31.3 g/dl (31.0-35.0); Mean Corpuscular Hemoglobin 25.9 pg (27.0-33.0); Mean Corpuscular Volume 82.8 fL (80.0-98.0); Mean Platelet Volume 10.4 fL (9.4-12.3); Monocytes Absolute Auto 0.7 X10*3/uL (0.1-1.2); Monocytes Percent Auto 5.6 % (2-11); Neutrophils Percent Auto 66.1 % (45-73); Platelet Count 360 X10*3/uL (160-400); Red Blood Count 4.64 X10*6/uL (4.20-5.50); Red Cell Distribution Width 14.6 % (11.0-16.0); White Blood Count 12.1 X10*3/uL (4.8-10.8)
[2023-12-27 17:10] LABS: CDiff Gene PCR NEGATIVE (Negative)
== END 2023-12-27 09:50 | disposition home or self-care (01) ==
LOC: HO.HHCL 09:49
PROVIDERS: Visit Provider Family Medicine
DX: Z86.19 Personal history of other infectious and parasitic diseases (principal); R30.0 Dysuria
CPT/HCPCS: 36415; 85025; 87086; 87493

== ENCOUNTER 2023-12-31 17:58 | Outpatient (REF) | payer MEDICAID, SELFPAY | END 2023-12-31 17:59 | disposition home or self-care (01) | LOC: HO.HHCLNP 17:58 | PROVIDERS: Visit Provider Internal Medicine | DX: R30.0 Dysuria (principal) | CPT/HCPCS: 87086 ==

== ENCOUNTER 2024-01-01 09:02 | Outpatient (AMB) | payer MEDICAID, SELFPAY ==
--- NOTE | 2024-01-01 09:13 | MHC.OFFVIS ---
Intake Visit Reasons: cysto(Recurrent UTI) Intake Note: Patient is present for CYSTO (RECURRENT UTI) Urology Medication:ESTRADIOL Antibiotic Allergy:penicillin Blood Thinner:none Stock Blender Required: No Allergies penicillin V Allergy (Unknown, Verified 01/01/24 09:15) Unknown Penicillins [PENICILLINS] Allergy (Unknown, Verified 01/01/24 09:15) UNKNOWN - RXN CHILD HPI Comments Details: Chelsea is a pleasant Sierra Leonean-speaking female. She is a patient of Dr. Scanlon. She has seen for the following urologic conditions - recurrent UTI Translation provided by her Cystoscopy with red patch on posterior wall Has irritation through bladder Would recommend operative biopsy with fulguration Recurrent UTI Ongoing for the past 18 months Multiple positive cultures with E coli. Levaquin and ampicillin resistant. Prior hysterectomy and oophorectomy CT scan abdomen and bladder normal Recommend Estrace cream, fluids, fiber, bowel control, suppression antibiotics - plan cystoscopy [facility] Medical History (Updated 01/02/24 @ 16:05 by Alex Ibanez MD) Hypokalemia Diarrhea Abdominal pain Pyelonephritis Recurrent UTI Osteoporosis Surgical History Hx of hysterectomy Hx of bilateral oophorectomy Family History Mother Diabetes Hyperlipidemia HTN (hypertension) Myasthenia gravis Father Diabetes HTN (hypertension) Social History Household Members: Spouse Housing: House Do you presently have visiting nurse or other home services: No Alcohol intake: never Patient Tobacco Use Status: Never used Tobacco service: No Review of Systems Const Denies chills and Denies fever(s) Card Reports no additional complaints and Denies syncope Resp Denies cough GI Denies abdominal pain and Denies heartburn Reports as per HPI and Denies change in libido Neuro Denies syncope Psych Denies change in libido Endo Denies change in libido Physical Exam Const General: cooperative, healthy appearing, comfortable and no acute distress Orientation/consciousness: patient oriented x3 HEENT Face and sinus: Yes normal facial exam Mouth: moist mucous membranes Neck Neck: Yes normal visual inspection, Yes full ROM and Yes trachea midline Chest Chest palpation & inspection: normal inspection of the chest Resp Effort & Inspection: normal respiratory effort, able to speak in complete sentences and no respiratory distress GI Inspection: Yes normal to inspection Back/Spine/Pelvis Cervical Spine: normal cervical lordosis Thoracic/Lumbar Spine: thoracic and lumbar spine normal to inspection Skin General skin exam: no rashes or lesions noted Neuro General: patient oriented x3, gait normal, tone normal and moves all extremities Extrem General: Yes normal to inspection and Yes capillary refill normal Office Procedures Cystoscopy Consent Discussed risk and benefit or proposed procedure with the patient. Information consent for procedure given to the patient. Discussed technical aspects, risks, benefits and alternatives in full. Addressed all of the patient's questions and concerns regarding the procedure. The patient demonstrated knowledge and understanding. They wish to proceed with this procedure. Preparation The patient was prepped in the usual manner. A window draper was present and in the room. Genitalia was prepped with betadine solution in a sterile manner. Lidocaine Jelly 2% was placed into the urethra and 16Fr flexible Olympus cystoscope was inserted into the meatus after adequate lubrication. Procedure Meatus caruncle Urethra normal Bladder examination with retroflexion of cystoscope Bladder Orifices normal shape and position Trigone metaplasia Bladder Capacity medium Trabeculations - Cellule Formation - Diverticulum Formation - Mucosal Erythema large mucosal erythematous patch on posterior wall of bladder. May represent CIS. Recommend biopsy Bladder Tumor - [id number] DISPOSABLE SCOPE URO-G FLEXIBLE SCOPE Procedure code (CPT) selection complete Office Meds lidocaine HCl 2 % mucosal jelly in applicator Performing Provider: Alex Ibanez MD [place] [facility] [place] [facility] Administered by: Jonatan Lloyd LPN on 01/01/24 09:38 Dose Route Admin Location Dispensed Lot Number Expiration Date NDC [facility] Hand 10 mL intra-urethral 10 mL nitrofurantoin monohydrate/macrocrystals 100 mg capsule Performing Provider: Alex Ibanez MD Performing [place] [facility] [place] [facility] Administered by: Jonatan Lloyd LPN on 01/01/24 09:38 Dose Route Admin Location Dispensed Lot Number Expiration Date NDC [facility] Hand 100 mg PO 1 cap naproxen 500 mg tablet Performing Provider: Alex Ibanez MD [place]forming [place] [facility] [place] [facility] Administered by: Jonatan Lloyd LPN on 01/01/24 09:38 Dose Route Admin Location Dispensed Lot Number Expiration Date NDC [facility] Hand 500 mg PO 1 tab Results AMB Urinalysis, Automated UA Leukoctes 15 Vane/uL Last Edit by ALMA Guerrero on 01/01/24 09:40 UA Nitrite Negative Last [facility] 01/01/[facility] 09:40 UA Urobilinogen 0.2 mg/dL Last Edit by ALMA Guerrero on 01/01/24 09:40 UA Protein 15 mg/dL Last Edit by Ester Naranjo [facility] on 01/01/24 09:40 UA pH 6.0 Last Edit by Ester Naranjo [facility] on 01/01/24 09:40 UA Blood 0 [place]/uL Last Edit by Ester Naranjo [facility] on 01/01/24 09:40 UA Specific [place] 1.020 Last Edit by Ester Naranjo [facility] on 01/01/24 09:40 UA Ketone Negative Last Edit by Ester Naranjo [facility] on 01/01/24 09:40 UA Bilirubin 0 mg/dL Last Edit [facility] 01/01/24 09:40 UA Glucose 0 mg/dL Last Edit by Ester Naranjo [facility] on 01/01/24 09:40 Results Reviewed Results Reviewed: Laboratory Last Values Urine pH (Auto) 6.0 01/01/24 09:40 Specific [place] (Auto) 1.020 01/01/24 09:40 Urine Protein (Auto) 15 mg/dL 01/01/24 09:40 Glucose (UA)(Auto) 0 mg/dL 01/01/24 09:40 Urine Ketones (Auto) Negative 01/01/24 09:40 Urine Blood (Auto) 0 [place]/uL 01/01/24 09:40 Urine Nitrite (Auto) Negative 01/01/24 09:40 Urine Bilirubin (Auto) 0 mg/dL 01/01/24 09:40 Urine Urobilinogen (Auto) 0.2 mg/dL 01/01/24 09:40 Leukocyte Esterase (Auto) 15 Vane/uL 01/01/24 09:40 Assessment & Plan Assessment & Plan (1) Lesion of bladder: Code(s): N32.9 - Bladder disorder, unspecified Category: Medical Plan Plan for cystoscopy with bladder biopsy fulguration Risks, benefits and alternatives to therapy were discussed. These include but are not limited to infection, bleeding, damage to local organs and tissues, need for further interventions. Anesthetic risks regarding cardiac arrhythmia, blood clots, and potential mortality were discussed. The patient understands the typical recovery time and the outpatient nature of the procedure. After consideration of these risks the patient gives full informed consent and they wish to move ahead with the procedure. Orders: Orders AMB Cystoscopy 01/01/24 N39.0 - Urinary tract infection, site not specified AMB Urinalysis Automated 01/01/24 Z13.9 - Encounter for screening, unspecified Urine Cytology 01/01/24 N39.0 - Urinary tract infection, site not specified Patient Instructions: Imaging studies, laboratory and physical exam results were discussed and reviewed in detail. No major barriers to patient understanding were identified. An opportunity to ask questions regarding the treatment plan was provided. All questions were answered. The patient expressed understanding and agreement with the above treatment plan. The patient is aware they should contact our office by phone for worsening of their current condition or the appearance of new urologic symptoms. Compliance is encouraged with any medications and followup testing that is ordered. It is a privilege to participate in the urologic care of your patient. If you have any questions or concerns regarding treatment for the above conditions, or other urologic issues, please do not hesitate to contact me. The office telephone contact is [phone]. This note is constructed using voice recognition software. While every effort has been made to ensure accuracy java programmer errors may have been included. Yours sincerely, Dr Alex Ibanez MD, [facility] - Urology Providers of Expert, Compassionate Care for the Genitourinary System Coding Level of Care Code Est Pt Level 4 (76490) Diagnoses Lesion of bladder N32.9 CPT Codes Cystoscopy - CPT: [id number] ([id number])
== END 2024-01-01 10:28 | disposition home or self-care (01) ==
PROVIDERS: PCP Internal Medicine Geriatric Medicine; Visit Provider Urology
DX: Z13.9 Encounter for screening, unspecified (principal); N39.0 Urinary tract infection, site not specified
CPT/HCPCS: 52000; 99214

== ENCOUNTER 2024-01-01 09:02 | Outpatient (REF) | payer MEDICAID, SELFPAY ==
[2024-01-01 17:09] LABS: Urine Cytology See Pathology rpt
== END 2024-01-01 09:03 | disposition home or self-care (01) ==
LOC: HO.LAB 09:02
PROVIDERS: PCP Internal Medicine Geriatric Medicine; Visit Provider Urology
DX: N39.0 Urinary tract infection, site not specified (principal); N32.9 Bladder disorder, unspecified
CPT/HCPCS: 52000; 81003; 88112; 99212

== ENCOUNTER 2024-01-02 08:29 | Outpatient (REF) | payer MEDICAID, SELFPAY ==
[2024-01-02 12:18] LABS: Cholesterol 176 mg/dL (<200); HDL Cholesterol 39 mg/dL (>40); LDL Cholesterol Calculated 106 mg/dL (<100); Triglycerides 158 mg/dL (<150)
[2024-01-02 12:36] LABS: Estimated Average Glucose 117 mg/dL; Hemoglobin A1c % 5.7 % (<6.0)
[2024-01-02 13:04] LABS: Reflex LDLD? No
== END 2024-01-02 08:30 | disposition home or self-care (01) ==
LOC: HO.HHCL 08:29
PROVIDERS: Visit Provider Internal Medicine
DX: Z00.00 Encounter for general adult medical examination without abnormal findings (principal)
CPT/HCPCS: 36415; 80061; 83036; 84443

== ENCOUNTER 2024-02-26 07:49 | Day surgery (SDC) | payer MEDICAID, SELFPAY ==
--- NOTE | 2024-02-25 09:32 | HO.ANESPROP2 ---
Documented by User: Brenda Babb NP 02/25/24 09:33 HPI - Anesthesia Eval Consult details Narrative: 63yo F for Cystoscopy Bladder Fulguration,with biopsies PMFSH Active Problems Active Problems: All Active Problems Lesion of bladder (Acute) Osteoporosis (Acute) Past Medical History Medical History (Updated 01/02/24 @ 16:05 by Alex Ibanez MD) Hypokalemia Diarrhea Abdominal pain Pyelonephritis Recurrent UTI Osteoporosis Family History Family History Mother Diabetes Hyperlipidemia HTN (hypertension) Myasthenia gravis Father Diabetes HTN (hypertension) Surgical History Surgical History Hx of hysterectomy Hx of bilateral oophorectomy Social History Social History Household Members: Spouse Housing: House Do you presently have visiting nurse or other home services: No Alcohol intake: never Patient Tobacco Use Status: Never used Tobacco Use of substances other than those prescribed or required for medical reasons: No Are you DNR?: No Advance Directives: No Advance Directives Information Provided: Yes service: No Meds Allergies Allergy/AdvReac Type Severity Reaction Status Date / Time levofloxacin Allergy Mild Rash Verified 02/26/24 09:31 penicillin V Allergy Unknown Unknown Verified 02/26/24 09:31 Penicillins [PENICILLINS] Allergy Unknown UNKNOWN - Verified 02/26/24 09:31 RXN CHILD Home Medications ?Medication ?Instructions ?Recorded ?Confirmed ?Last Taken ?Type azathioprine 50 mg tablet 50 mg PO TID 12/12/23 02/26/24 12/21/23 History pyridostigmine bromide 60 mg tablet 60 mg PO TID 12/12/23 02/26/24 12/21/23 History calcium carbonate 500 mg PO DAILY 12/21/23 02/26/24 Unknown History cholecalciferol (vitamin D3) 25 25 mcg PO DAILY 12/21/23 02/26/24 Unknown History mcg (1,000 unit) capsule (Vitamin D3) Exam Pertinent Lab Results Pertinent Lab Results: Laboratory Tests 12/23/23 12/27/23 07:48 09:56 WBC 12.1 H Hgb 12.0 Hct 38.4 Plt Count 360 Sodium 142 Potassium 3.4 Chloride 106 Carbon Dioxide 27 BUN 13 Creatinine 0.76 Assessment and Plan Assessment Anesthesia Assessment: Chart Reviewed Documented by User: Kiko Cui MD 02/26/24 10:27 [facility] Past Medical History Medical History (Updated 01/02/24 @ 16:05 by Alex Ibanez MD) Hypokalemia Diarrhea Abdominal pain Pyelonephritis Recurrent UTI Osteoporosis Family History Family History Mother Diabetes Hyperlipidemia HTN (hypertension) Myasthenia gravis Father Diabetes HTN (hypertension) Family history of problems with anesthesia: No Surgical History Surgical History Hx of hysterectomy Hx of bilateral oophorectomy History of Problems with Anesthesia: No Social History Social History Household Members: Spouse Housing: House Do you presently have visiting nurse or other home services: No Alcohol intake: never Patient Tobacco Use Status: Never used Tobacco Use of substances other than those prescribed or required for medical reasons: No Are you DNR?: No Advance Directives: No Advance Directives Information Provided: Yes service: No Meds Allergies Allergy/AdvReac Type Severity Reaction Status Date / Time levofloxacin Allergy Mild Rash Verified 02/26/24 09:31 penicillin V Allergy Unknown Unknown Verified 02/26/24 09:31 Penicillins [PENICILLINS] Allergy Unknown UNKNOWN - Verified 02/26/24 09:31 RXN CHILD Home Medications ?Medication ?Instructions ?Recorded ?Confirmed ?Last Taken ?Type azathioprine 50 mg tablet 50 mg PO TID 12/12/23 02/26/24 12/21/23 History pyridostigmine bromide 60 mg tablet 60 mg PO TID 12/12/23 02/26/24 12/21/23 History calcium carbonate 500 mg PO DAILY 12/21/23 02/26/24 Unknown History cholecalciferol (vitamin D3) 25 25 mcg PO DAILY 12/21/23 02/26/24 Unknown History mcg (1,000 unit) capsule (Vitamin D3) Exam Airway Mallampati Class: II TM Dist: <=3cm Neck ROM: Full Partial: Upper and Lower Loose/Missing/Broken Teeth: Yes, Upper and Lower Heart: ok Lungs: ok Assessment and Plan Assessment Anesthesia Assessment: Anesthesia Plan Discussed Final Anesthetic Review Family History of Problems with Anesthesia: No History of Problems with Anesthesia: No NPO: Yes ASA Class: II Final Preanesthetic Review: No Changes in Pt Med Stat, Meds/Allgs Chart Reviewed, Consent Obtained/Reviewed and Anes Risks/Benef Reviewed Patient Risk: Intermediate Procedure Risk: Low Anesthetic Plan Anesthetic Plan: GA and Agree w/ Assess. and Plan Disposition: Standard PACU
[2024-02-26] VITALS (9 sets, daily range): BP systolic 125–161; BP diastolic 65–92; PULSE 50–80; RESP 16–18; TEMP 36.1–36.4; O2SAT 94–98; BMI 27.8
[2024-02-26] MEDS: Lactated Ringers 1,000 ML 100 ML IVCONT (09:49)
--- NOTE | 2024-02-26 10:08 | MHC.SHP ---
Pre-Procedural Eval Section A - 24 Hr Update-Section A only Date of Service: 02/26/24 The patient is an INPATIENT: No The patient has been examined within 24 hours of the surgical procedure. The History & Physical has been completed within 30 days and I have reviewed it.: Yes Section B - Complete if H&P > 30 days Chief Complaint: Other chronic cystitis without hematuria Allergies: Allergies Allergy/AdvReac Type Severity Reaction Status Date / Time levofloxacin Allergy Mild Rash Verified 02/26/24 09:31 penicillin V Allergy Unknown Unknown Verified 02/26/24 09:31 Penicillins [PENICILLINS] Allergy Unknown UNKNOWN - Verified 02/26/24 09:31 RXN CHILD Plan Diagnosis/Plan: Unchanged I have reviewed the history and physical and performed a pertinent physical examination on my patient. No changes have occurred unless specified. Cystoscopy bladder biopsies, fulguration Time Spent With Patient Time: Total time managing care of this patient today ____ minutes.
--- NOTE | 2024-02-26 11:15 | P.OP_ITS ---
Operative Note Operative Note Date of Service: 02/26/24 Narrative: PREOP DIAGNOSIS: microscopic hematuria, recurrent UTI POSTOP DIAGNOSIS: microscopic hematuria, recurrent UTI, cystitis PROCEDURE: Cystoscopy, hydrodistention, bladder biopsy, fulguration Anethesia: General Surgeon: Dr. Eva Watts Indications: Recurrent UTIs. Evaluation on office cystoscopy noted erythematous changes and patient is being brought in for further diagnostic evaluation. Details of procedure: The patient was brought into the operating room placed on the OR table in supine position. 2 g of Ancef IV. General anesthesia was administered. The patient was repositioned into lithotomy position, prepped and draped in the usual sterile fashion. Time-out was done per protocol. A 22 fr cystoscope was placed transurethrally into the bladder. Urine was drained from the bladder and sent for culture. The right and left ureteral orifices were visualized. The entire bladder was visualized. There were prominent vascular markings noted. There were no suspicious bladder lesions seen. The bladder was filled with sterile water at 80 cm of water pressure under gravity. The bladder was distended for 2 minutes. Bladder capacity measured 450 mL. Re visualization of the bladder, noted no glomerulations or Hunner's ulcerations. The bladder was refilled with sterile water again at 80 cm of water pressure under gravity. The bladder was distended for 3 minutes. The fluid was drained from the bladder and measured 450 mL. Bladder biopsy of the posterior wall x2 was done with the flexible cold cup biopsy forceps. The Bugbee electrode was used to cauterize and fulgurate the base of biopsy site. The cystoscope was removed. 2% lidocaine urojet was passed transurethrally. The patient was brought out of anesthesia and taken to recovery in stable condition. Complications: None Drains: none
[2024-02-26] MEDS: Phenazopyridine HCL 200 MG TABLET PO (11:51)
[2024-02-26] MEDS: hydrOXYzine HCL 25 MG TABLET PO (11:51)
[2024-02-26] MEDS: fentaNYL citrate/PF 100 MCG/2 ML VIAL 25 MCG IVPUSH (11:52)
== END 2024-02-26 12:48 | disposition home or self-care (01) ==
PROVIDERS: PCP Internal Medicine Geriatric Medicine; Visit Provider Urology
PROC: 0T5B8ZZ Destruction of Bladder, Via Natural or Artificial Opening Endoscopic (ICD-10-PCS; CPT 52204; principal; 2024-02-26 09:30)
DX: N30.20 Other chronic cystitis without hematuria (principal); B96.89 Other specified bacterial agents as the cause of diseases classified elsewhere; R31.29 Other microscopic hematuria; N12 Tubulo-interstitial nephritis, not specified as acute or chronic; E87.6 Hypokalemia; M81.0 Age-related osteoporosis without current pathological fracture; Z88.0 Allergy status to penicillin; Z98.890 Other specified postprocedural states
CPT/HCPCS: 52204; 87086; 88305; J0690; J2704; J3010

== ENCOUNTER → 2024-02-26 07:49 | Outpatient (BNV) | payer MEDICAID, SELFPAY | PROVIDERS: PCP Internal Medicine Geriatric Medicine; Visit Provider Urology | DX: N30.21 Other chronic cystitis with hematuria (principal) | CPT/HCPCS: 52260 ==

== ENCOUNTER 2024-03-19 13:42 | Outpatient (AMB) | payer MEDICAID, SELFPAY ==
--- NOTE | 2024-03-19 13:31 | MHC.OFFVIS ---
Intake Visit Reasons: Bladder biopsy results Intake Note: Patient is present for Bladder biopsy results Urology Medication: NONE Antibiotic Allergy:penicillins, levofloxacin Blood Thinner:none Four Slide Machine Setter Required: No Allergies levofloxacin Allergy (Mild, Verified 03/19/24 13:33) Rash penicillin V Allergy (Unknown, Verified 03/19/24 13:33) Unknown Penicillins [PENICILLINS] Allergy (Unknown, Verified 03/19/24 13:33) UNKNOWN - RXN CHILD HPI Comments Details: Chelsea is a pleasant Upper Sor[place]-speaking female. She is a patient of Dr. Scanlon. She has seen for the following urologic conditions - recurrent UTI Translation provided by her Cystoscopy with red patch on posterior wall Has irritation through bladder Would recommend operative biopsy with fulguration Recurrent UTI Ongoing for the past 18 months Multiple positive cultures with E coli. Levaquin and ampicillin resistant. Prior hysterectomy and oophorectomy CT scan abdomen and bladder normal Recommend Estrace cream, fluids, fiber, bowel control, suppression antibiotics - plan cystoscopy [facility] Medical History (Updated 01/02/24 @ 16:05 by Alex Ibanez MD) Hypokalemia Diarrhea Abdominal pain Pyelonephritis Recurrent UTI Osteoporosis Surgical History Hx of hysterectomy Hx of bilateral oophorectomy Family History Mother Diabetes Hyperlipidemia HTN (hypertension) Myasthenia gravis Father Diabetes HTN (hypertension) Social History Household Members: Spouse Housing: House Do you presently have visiting nurse or other home services: No Alcohol intake: never Patient Tobacco Use Status: Never used Tobacco service: No Coding
--- NOTE | 2024-03-19 16:10 | MHC.OFFVIS ---
Intake Visit Reasons: Bladder biopsy results Marketing Instructor Required: Yes Marketing Instructor Services: Marketing Instructor Present Marketing Instructor Name: Certified Marketing Instructor utilized Allergies levofloxacin Allergy (Mild, Verified 04/11/24 08:34) Rash penicillin V Allergy (Unknown, Verified 04/11/24 08:34) Unknown Penicillins [PENICILLINS] Allergy (Unknown, Verified 04/11/24 08:34) UNKNOWN - RXN CHILD HPI Comments Details: 03/19/24--Telehealth visit to discuss bladder biopsy results. The patient is Spanich speaking. LV- 01/01/[address] Ibanez. I reviewed bladder biopsy results- mild reactive epithelial changes, no atypical or malignant cells. Review of operative note, bladder capacity during cystoscopy 450 mL. Pt complains of vaginal itching. Diflucan prescribed. Review of chart: 01/01/24--Cystoscopy with red patch on posterior wall Has irritation through bladder Would recommend operative biopsy with fulguration Recurrent UTI Ongoing for the past 18 months Multiple positive cultures with E coli. Levaquin and ampicillin resistant. Prior hysterectomy and oophorectomy CT scan abdomen and bladder normal Recommend Estrace cream, fluids, fiber, bowel control, suppression antibiotics - plan cystoscopy [facility] Medical History Hypokalemia Diarrhea Abdominal pain Pyelonephritis Recurrent UTI Osteoporosis Surgical History Hx of hysterectomy Hx of bilateral oophorectomy Family History Mother Diabetes Hyperlipidemia HTN (hypertension) Myasthenia gravis Father Diabetes HTN (hypertension) Social History Household Members: Spouse Housing: House Do you presently have visiting nurse or other home services: No Alcohol intake: never Patient Tobacco Use Status: Never used Tobacco service: No Telehealth Telehealth Telehealth Platform: Telephone Location of provider rendering services: practice address Location of patient: address on file Patient Identification confirmed using: Name, : Yes Telehealth method: voice only Patient verbally consented to treatment: Yes Patient verbally consented to billing insurance company: Yes Minutes spent on Phone/Video with Pt.: 16 Results Reviewed Results Reviewed: Collected: 02/26/24 Location: [facility] Received: 02/26/24 Diagnosis Bladder, posterior wall, biopsy: Urothelial mucosa with mild reactive epithelial changes; muscularis propria is noted; negative for malignancy. Clinical History Other chronic cystitis without hematuria Microscopic Description Microscopic sections reviewed. Material Received Bladder bxs posterior wall Assessment & Plan Assessment & Plan (1) Vaginal pruritus: Code(s): N89.8 - Other specified noninflammatory disorders of vagina Category: Medical (2) Cystitis: Code(s): N30.90 - Cystitis, unspecified without hematuria Category: Medical Plan Outpatient cystoscopy/biopsy - no atypical or malignant cells. Cystitis. Vaginal pruitis. Diflucan 150 mg prescribed Medications: New fluconazole 150 mg orally; take first dose today then repeat in 2 days 150 mg PO ONCE 2 tabs 0RF Patient Instructions: The patient had an opportunity to ask questions regarding treatment plan. The patient expressed understanding and agreement with the above treatment plan. The patient is aware they should contact our office by phone for worsening of their current condition or the appearance of new symptoms. Compliance is encouraged with any medications and followup testing that is ordered. It is a privilege to be allowed the opportunity to participate in the urologic care of your patient. If you have any questions or concerns regarding treatment for the above conditions please do not hesitate to contact me. The office telephone contact is [phone]. This note is constructed in part using voice recognition software. While every effort has been made to ensure accuracy human resources file clerk errors may have been included. Yours sincerely, Eva Watts MD Coding Level of Care Code Tele Est Pt Level 4 (97359) Diagnoses Vaginal pruritus N89.8 Cystitis N30.90
== END 2024-03-19 16:11 | disposition home or self-care (01) ==
LOC: HO.HUSH 13:42
PROVIDERS: PCP Internal Medicine Geriatric Medicine; Visit Provider Urology
DX: N89.8 Other specified noninflammatory disorders of vagina (principal); N30.90 Cystitis, unspecified without hematuria
CPT/HCPCS: 99214

== ENCOUNTER → 2024-03-19 13:42 | Outpatient (BNVA) | payer MEDICAID, SELFPAY | PROVIDERS: PCP Internal Medicine Geriatric Medicine; Visit Provider Urology ==

== ENCOUNTER 2024-04-01 10:35 | Outpatient (REF) | payer MEDICAID, SELFPAY ==
[2024-04-01 11:11] LABS: MANUAL DIFF FLAG NO
[2024-04-01 11:36] LABS: Basophils Absolute Auto 0.1 X10*3/uL (0.0-0.2); Basophils Percent Auto 0.8 % (0-2); Eosinophils Absolute Auto 0.1 X10*3/uL (0.0-0.4); Eosinophils Percent Auto 1.3 % (0-4); Hematocrit 44.4 % (37.0-47.0); Hemoglobin 14.1 g/dl (12.0-16.0); Imm Gran Abs Auto 0.03 X10*3/uL (0.00-0.03); Imm Gran Pct Auto 0.3 % (0.0-0.4); Lymphocytes Absolute Auto 2.6 X10*3/uL (1.2-4.9); Lymphocytes Percent Auto 28.8 % (20-40); Mean Corpuscular HGB Conc 31.8 g/dl (31.0-35.0); Mean Corpuscular Hemoglobin 25.6 pg (27.0-33.0); Mean Corpuscular Volume 80.6 fL (80.0-98.0); Mean Platelet Volume 11.2 fL (9.4-12.3); Monocytes Absolute Auto 0.6 X10*3/uL (0.1-1.2); Monocytes Percent Auto 6.6 % (2-11); Neutrophils Absolute Auto 5.6 x10*3/uL (2.0-8.3); Neutrophils Percent Auto 62.2 % (45-73); Platelet Count 287 X10*3/uL (160-400); Red Blood Count 5.51 X10*6/uL (4.20-5.50); Red Cell Distribution Width 15.6 % (11.0-16.0)
[2024-04-01 12:35] LABS: Alanine Aminotransferase 21 U/L (0-31); Albumin Level 4.2 g/dL (3.5-5.0); Alkaline Phosphatase 91 U/L (39-117); Anion Gap 11 (12-20); Aspartate Amino Transferase 33 U/L (5-31); Blood Urea Nitrogen 18 mg/dL (9-16); Calcium 10.6 mg/dL (8.4-10.2); Carbon Dioxide 32 mmol/L (22-29); Chloride 105 mmol/L (96-108); Cholesterol 208 mg/dL (<200); Estimated Glomerular Filt Rate > 60; Glucose Random 96 mg/dL (60-115); HDL Cholesterol 45 mg/dL (>40); LDL Cholesterol Calculated 126 mg/dL (<100); Potassium 3.3 mmol/L (3.3-5.1); Sodium 145 mmol/L (135-145); Total Protein 7.2 g/dL (6.5-8.0); Triglycerides 185 mg/dL (<150)
[2024-04-01 12:43] LABS: Vitamin D 25-OH Total 41.2 ng/mL (>30)
== END 2024-04-01 10:36 | disposition home or self-care (01) ==
LOC: HO.HHCL 10:35
PROVIDERS: Visit Provider Internal Medicine
DX: R39.9 Unspecified symptoms and signs involving the genitourinary system (principal)
CPT/HCPCS: 36415; 80053; 80061; 82306; 85025; 87086

== ENCOUNTER 2024-04-11 08:25 | Outpatient (AMB) | payer MEDICAID, SELFPAY ==
[2024-04-11 08:32] VITALS: BP 138/72; PULSE 72; O2SAT 98; BMI 28.3
--- NOTE | 2024-04-11 08:32 | MHC.OFFVIS ---
Vital Signs 04/11/24 08:32 Height 5 ft 2 in Weight 154 lb 12.232 oz BMI 28.3 BP 138/72 Blood Pressure Location Rt brachial Position Sitting Pulse 72 Pulse Source Pulse Oximeter Pulse Oximetry (%) 98 Oxygen Delivery Method Room Air Intake Visit Reasons: Gastroenteritis, Constipation, rectal bleeding Intake Note: Relevant Flags or Indicators ? Requires Steam Pressure Chamber Operator? Hayder Kim presents in office today for a scheduled initial assessment - Pt reports hx of colonoscopy approximately 10 years ago. No hx of EGD. CC; Pt has had recent labs done per PCP. No recent diagnostics or meds ordered. Relevant GI Sx as reported per pt? Reflux ? Dysphagia / Painful Swallowing ? Fecal abnormalities o?? Discolored - Hematochezia possibly related to hemorrhoids and straining. o?? Constipation ? Abdominal Pain o?? Upper B/L ? Bloating ? Hx of any recent surgeries? Recent bladder, cystoscopy per Dr. Ibanez Steam Pressure Chamber Operator Required: Yes Steam Pressure Chamber Operator Services: Steam Pressure Chamber Operator Offered & Declined Steam Pressure Chamber Operator Name: Family Information Interpreted: non-clinical & clinical Accompanied by: Family/Other Allergies levofloxacin Allergy (Mild, Verified 04/11/24 08:34) Rash penicillin V Allergy (Unknown, Verified 04/11/24 08:34) Unknown Penicillins [PENICILLINS] Allergy (Unknown, Verified 04/11/24 08:34) UNKNOWN - RXN CHILD HPI HPI Gastroenteritis, Constipation, rectal bleeding: Details: 63-year-old female with past medical history hypertension, hypokalemia, diarrhea is here today for initial consultation. Patient was sent by her PCP. Patient has been experiencing in the past few months postprandial abdominal bloating and epigastric pain. Patient reports that the pain is also located in the right upper and left upper quadrant and sometimes it goes across the whole upper part of her abdomen. Patient describes the pain as cramping, patient reports to be feeling bloated. Pain, cramping and bloating not always related to food. However patient does report that sometimes she will have acid reflux and feels like she is unable to swallow solid food, able to swallow liquids. Patient denies any nausea or vomiting. Reports occasional postprandial loose stools, however patient feels like she goes to the bathroom couple times a day and does not feel like she empties her bowel good. Patient reports occasional straining and blood after having a bowel movement. Last colonoscopy over 10 years ago. History of C diff back in November of 2023, treated repeat test in December normal. Patient had normal GI panel. Recent lab work ordered by PCP showed normal H&H, elevated AST and triglyceride. Recently patient had cystoscopy and have been following up with urologist. Last visit was March 19. REPLACED BY [facility] Medical History Hypokalemia Diarrhea Abdominal pain Pyelonephritis Recurrent UTI Osteoporosis Surgical History Hx of hysterectomy Hx of bilateral oophorectomy Family History Mother Diabetes Hyperlipidemia HTN (hypertension) Myasthenia gravis Father Diabetes HTN (hypertension) Social History Household Members: Spouse Housing: House Do you presently have visiting nurse or other home services: No Alcohol intake: never Patient Tobacco Use Status: Never used Tobacco service: No Review of Systems Const Denies weight gain and Denies weight loss ENT Reports no additional complaints, Denies dysphagia and Denies odynophagia Card Reports no additional complaints Resp Reports no additional complaints GI Denies abdominal pain, Denies belching, Denies melena, Denies bloating, Denies change in bowel habits, Denies dysphagia, Denies excessive flatus, Denies dyspepsia, Denies heartburn, Denies diarrhea, Denies loose stools, Denies nausea, Denies odynophagia and Denies vomiting Musc Reports no additional complaints Neuro Reports no additional complaints Psych Reports no additional complaints Endo Reports no additional complaints Physical Exam Vital Signs: Last Vital Signs Pulse 72 04/11/24 08:32 BP 138/72 04/11/24 08:32 Pulse Ox 98 04/11/24 08:32 Oxygen Delivery Method Room Air 04/11/24 08:32 BMI result Body Mass Index 28.3 Const General: healthy appearing, no acute distress and well developed Nutritional Appearance: well nourished Orientation/consciousness: patient oriented x3 Resp Effort & Inspection: normal respiratory effort, able to speak in complete sentences, no tracheal deviation and symmetric chest movement Auscultation: clear to auscultation bilaterally Cardio Rate: regular rate GI Inspection: Yes normal to inspection and No distended Palpation (GI): Soft to palpation, not firm, nontender and No hepatosplenomegaly present Auscultation: normal bowel sounds General: Yes no CVA tenderness Back/Spine/Pelvis Back: no CVA tenderness Skin General skin exam: elasticity normal, turgor normal and dry skin Neuro General: patient oriented x3 Psych Appearance: grossly normal Mental Status: mental status grossly normal Assessment & Plan Assessment & Plan (1) Hemorrhoids without complication: Code(s): K64.9 - Unspecified hemorrhoids (2) GERD (gastroesophageal reflux disease): Code(s): K21.9 - Gastro-esophageal reflux disease without esophagitis Qualifiers: Esophagitis presence: esophagitis presence not specified Qualified Code(s): K21.9 - Gastro-esophageal reflux disease without esophagitis (3) Postprandial abdominal bloating: Code(s): R14.0 - Abdominal distension (gaseous) (4) Constipation: Code(s): K59.00 - Constipation, unspecified Qualifiers: Constipation type: slow transit constipation Qualified Code(s): K59.01 - Slow transit constipation Plan Patient was encouraged to increase fluid intake and activity to promote better bowel motility. Increase fiber in her diet, will send script for senna. Two tablets daily. Avoid dietary and late night snacking. Staying upright for minimum 3 hours after meals discussed with patient. Patient will start omeprazole daily. Script for Proctosol send. Patient will return in 3 months to discuss prep, I will send her for upper endoscopy. Message sent to surgical schedulers to book upper endoscopy and colonoscopy for patient. Patient is agreeable to current plan of care and verbalizes understanding of instructions. She was given the opportunity to ask questions and all questions answered. Thank you for allowing me to participate in her care Medications: New sennosides (Natural Senna Laxative) 17.2 mg (2 x 8.6 mg) PO BEDTIME 60 tabs 3RF constipation K59.00 - Constipation, unspecified omeprazole 20 mg PO DAILY 30 caps 3RF K21.9 - Gastro-esophageal reflux disease without esophagitis hydrocortisone 2.5% (Proctosol HC) 1 appl NE BID-QID PRN 30 grams 2RF hemorrhoids K64.9 - Unspecified hemorrhoids Coding Level of Care Code New Pt Level 3 (96419) Diagnoses Hemorrhoids without complication K64.9 Gastroesophageal reflux disease, unspecified whether esophagitis present K21.9 Esophagitis presence: esophagitis presence not specified Postprandial abdominal bloating R14.0 Slow transit constipation K59.01 Constipation type: slow transit constipation Time Spent (min) 40 Comment 30 minutes spent with patient and additional 10 minutes spent reviewing her records
== END 2024-04-11 09:40 | disposition home or self-care (01) ==
LOC: HO.HGI 08:25
PROVIDERS: PCP Internal Medicine Geriatric Medicine; Visit Provider Nurse Practitioner Family
DX: K64.9 Unspecified hemorrhoids (principal); K21.9 Gastro-esophageal reflux disease without esophagitis; R14.0 Abdominal distension (gaseous); K59.01 Slow transit constipation
CPT/HCPCS: 99203

== ENCOUNTER → 2024-04-11 08:25 | Outpatient (BNVA) | payer MEDICAID, SELFPAY | PROVIDERS: PCP Internal Medicine Geriatric Medicine; Visit Provider Nurse Practitioner Family | DX: K59.01 Slow transit constipation (principal); K64.9 Unspecified hemorrhoids; K21.9 Gastro-esophageal reflux disease without esophagitis; R14.0 Abdominal distension (gaseous) | CPT/HCPCS: 99212 ==